=== PATIENT | male | born 1950 | race Two or more races ===

== ENCOUNTER 2018-06-06 21:45 | Inpatient (IN) | payer MEDICARE ==
[~2018-06-06] VITALS: Ht 188 cm; Wt 104.5 kg
[2018-06-06 22:44] LABS: BASOPHILS % (AUTO) 0.4 % (0.0-2.0); EOSINOPHILS % (AUTO) 7.8 % (1.0-6.0); HEMATOCRIT 30.2 % (41-53); HEMOGLOBIN 9.8 g/dL (13.5-17.5); LYMPHOCYTES # (AUTO) 1.3 K/uL (1.0-4.8); LYMPHOCYTES % (AUTO) 13.2 % (22.0-44.0); MEAN CORPUSCULAR HEMOGLOBIN 26.8 pg (26.0-34.0); MEAN CORPUSCULAR HGB CONC 32.3 G/dL (31.0-37.0); MEAN CORPUSCULAR VOLUME 83 fL (80-100); MONOCYTES # (AUTO) 0.7 K/uL (0.1-1.0); MONOCYTES % (AUTO) 6.8 % (2.0-9.0); NEUTROPHILS # (AUTO) 7.2 K/uL (1.8-7.7); NEUTROPHILS % (AUTO) 71.8 % (40.0-70.0); PLATELET COUNT (AUTO) 284 K/uL (150-450); RED BLOOD CELL COUNT(AUTO) 3.65 MIL/uL (4.50-5.90); RED CELL DISTRIBUTION WIDTH 15.7 % (11.5-14.5)
[2018-06-06 22:56] LABS: CALCIUM, TOTAL 8.2 mg/dL (8.8-10.5); CREATININE 1.53 mg/dL (0.60-1.30); POTASSIUM 3.7 mmol/L (3.5-5.1)
[2018-06-06 22:58] LABS: PROTHROMBIN TIME 10.7 SEC (9.4-11.6)
[2018-06-06 23:05] LABS: ALBUMIN 2.8 g/dL (3.4-5.0); BILIRUBIN,TOTAL 0.4 mg/dL (0.1-1.0); TOTAL PROTEIN, SERUM 6.5 g/dL (6.4-8.2)
[2018-06-06] MEDS ORDERED: PANTOPRAZOLE SODIUM 80 MG in SODIUM CHLORIDE 0.9% 100 ML IV SCH (23:45)
[2018-06-06] MEDS ORDERED: SODIUM CHLORIDE 0.9% 1,000 ML IV ONE ×2 (23:45)
[2018-06-07] MEDS ORDERED: ACETAMINOPHEN 325 MG TABLET PO PRN ×2 (00:30→00:45)
[2018-06-07] MEDS ORDERED: ONDANSETRON HCL 4 MG/2 ML VIAL IVP PRN ×2 (00:30→00:45)
[2018-06-07] MEDS ORDERED: 0.9% SODIUM CHLORIDE 10 ML SYRINGE IVP PRN (00:30)
[2018-06-07] MEDS ORDERED: ALBUTEROL SULFATE 2.5 MG/0.5 ML NEB SOLUTION NEB PRN (00:45)
[2018-06-07] MEDS ORDERED: BISACODYL 10 MG RECTAL RECTAL SUPPOSITORY PR PRN (00:45)
[2018-06-07] MEDS ORDERED: MAGNESIUM HYDROXIDE SUSPENSION 30 ML UDCUP PO PRN (00:45)
[2018-06-07] MEDS ORDERED: IPRATROPIUM BROMIDE 0.5 MG/2.5 ML NEB SOLUTION NEB PRN (00:45)
[2018-06-07] MEDS ORDERED: ZOLPIDEM TARTRATE 5 MG TABLET PO PRN (00:45)
[2018-06-07] MEDS: MORPHINE SULFATE 4 MG/ML SYRINGE IVP PRN ×2 (01:29→16:27)
[2018-06-07 01:45] VITALS: BP 145/89
[2018-06-07] MEDS ORDERED: PNEUMOCOCCAL VACCINE POLYVALENT 0.5 ML VIAL [PPSV23] IM ONE (03:15)
[2018-06-07] MEDS ORDERED: PEG 3350/NA SULF,BICARB,CL/KCL 4000 ML SOLUTION PO ONE (03:15)
[2018-06-07 04:17] VITALS: BP 159/95
[2018-06-07 08:17] VITALS: BP 147/80
[2018-06-07 08:36] LABS: BASOPHILS % (AUTO) 0.8 % (0.0-2.0); EOSINOPHILS % (AUTO) 10.1 % (1.0-6.0); HEMATOCRIT 26.1 % (41-53); HEMOGLOBIN 8.6 g/dL (13.5-17.5); LYMPHOCYTES % (AUTO) 16.6 % (22.0-44.0); MEAN CORPUSCULAR HEMOGLOBIN 27.1 pg (26.0-34.0); MEAN CORPUSCULAR HGB CONC 32.9 G/dL (31.0-37.0); MEAN CORPUSCULAR VOLUME 82 fL (80-100); MONOCYTES # (AUTO) 0.4 K/uL (0.1-1.0); MONOCYTES % (AUTO) 7.5 % (2.0-9.0); NEUTROPHILS # (AUTO) 3.8 K/uL (1.8-7.7); PLATELET COUNT (AUTO) 241 K/uL (150-450); RED BLOOD CELL COUNT(AUTO) 3.17 MIL/uL (4.50-5.90); RED CELL DISTRIBUTION WIDTH 15.9 % (11.5-14.5)
[2018-06-07 08:55] LABS: ALBUMIN 2.7 g/dL (3.4-5.0); BILIRUBIN,TOTAL 0.4 mg/dL (0.1-1.0); CALCIUM, TOTAL 8.2 mg/dL (8.8-10.5); CREATININE 1.28 mg/dL (0.60-1.30); POTASSIUM 3.7 mmol/L (3.5-5.1); TOTAL PROTEIN, SERUM 6.4 g/dL (6.4-8.2)
[2018-06-07] MEDS: PANTOPRAZOLE SODIUM 40 MG/VIAL IVP SCH (09:00)
[2018-06-07] MEDS ORDERED: SODIUM CHLORIDE 0.9% 1,000 ML IV ONE ×2 (10:47→11:00)
[2018-06-07 16:05] VITALS: BP 154/89
[2018-06-07 19:30] VITALS: BP 178/84
[2018-06-07] MEDS: AmLODIPine BESYLATE 10 MG TABLET PO SCH (20:27)
[2018-06-07 23:48] VITALS: BP 159/95
[2018-06-08] MEDS: OxyCODONE HCL/ACETAMINOPHEN 5-325 MG TABLET PO PRN ×3 (02:00→17:50)
[2018-06-08 04:10] VITALS: BP 123/59
[2018-06-08] MEDS ORDERED: PROPOFOL 1% 20 ML VIAL IVP ONE (05:34)
[2018-06-08 07:01] LABS: BASOPHILS % (AUTO) 0.9 % (0.0-2.0); EOSINOPHILS % (AUTO) 13.6 % (1.0-6.0); HEMATOCRIT 22.2 % (41-53); HEMOGLOBIN 7.6 g/dL (13.5-17.5); LYMPHOCYTES # (AUTO) 1.1 K/uL (1.0-4.8); LYMPHOCYTES % (AUTO) 21.6 % (22.0-44.0); MEAN CORPUSCULAR HGB CONC 34.3 G/dL (31.0-37.0); MEAN CORPUSCULAR VOLUME 82 fL (80-100); MONOCYTES # (AUTO) 0.5 K/uL (0.1-1.0); MONOCYTES % (AUTO) 10.1 % (2.0-9.0); NEUTROPHILS # (AUTO) 2.9 K/uL (1.8-7.7); NEUTROPHILS % (AUTO) 53.8 % (40.0-70.0); PLATELET COUNT (AUTO) 247 K/uL (150-450); RED BLOOD CELL COUNT(AUTO) 2.72 MIL/uL (4.50-5.90)
[2018-06-08 07:21] LABS: ALBUMIN 2.6 g/dL (3.4-5.0); BILIRUBIN,TOTAL 0.3 mg/dL (0.1-1.0); CALCIUM, TOTAL 8.4 mg/dL (8.8-10.5); CREATININE 1.33 mg/dL (0.60-1.30); MAGNESIUM 1.9 mg/dL (1.80-2.40); PHOSPHORUS 3.1 mg/dL (2.5-4.9); POTASSIUM 3.7 mmol/L (3.5-5.1); TOTAL PROTEIN, SERUM 6.2 g/dL (6.4-8.2)
[2018-06-08 07:36] VITALS: BP 157/87
[2018-06-08 07:50] LABS: HEMOGLOBIN A1C 6.1 % (4.5-6.2)
[2018-06-08] MEDS: PANTOPRAZOLE SODIUM 40 MG/VIAL IVP SCH ×2 (08:25→20:10)
[2018-06-08] MEDS: AmLODIPine BESYLATE 10 MG TABLET PO SCH (08:25)
[2018-06-08 11:12] VITALS: BP 142/81
[2018-06-08 15:32] VITALS: BP 141/86
[2018-06-08 19:56] VITALS: BP 157/84
[2018-06-08 23:30] VITALS: BP 139/70
[2018-06-09] MEDS: OxyCODONE HCL/ACETAMINOPHEN 5-325 MG TABLET PO PRN (02:52)
[2018-06-09 04:30] VITALS: BP 145/88
[2018-06-09 06:09] LABS: BASOPHILS % (AUTO) 0.7 % (0.0-2.0); EOSINOPHILS % (AUTO) 11.7 % (1.0-6.0); HEMATOCRIT 23.6 % (41-53); LYMPHOCYTES # (AUTO) 1.1 K/uL (1.0-4.8); LYMPHOCYTES % (AUTO) 20.4 % (22.0-44.0); MEAN CORPUSCULAR HEMOGLOBIN 27.5 pg (26.0-34.0); MEAN CORPUSCULAR HGB CONC 33.8 G/dL (31.0-37.0); MEAN CORPUSCULAR VOLUME 81 fL (80-100); MONOCYTES # (AUTO) 0.6 K/uL (0.1-1.0); MONOCYTES % (AUTO) 11.7 % (2.0-9.0); NEUTROPHILS % (AUTO) 55.5 % (40.0-70.0); PLATELET COUNT (AUTO) 259 K/uL (150-450); RED CELL DISTRIBUTION WIDTH 15.4 % (11.5-14.5)
[2018-06-09 06:31] LABS: ALBUMIN 2.8 g/dL (3.4-5.0); BILIRUBIN,TOTAL 0.3 mg/dL (0.1-1.0); CALCIUM, TOTAL 8.6 mg/dL (8.8-10.5); CREATININE 1.39 mg/dL (0.60-1.30); POTASSIUM 3.4 mmol/L (3.5-5.1); TOTAL PROTEIN, SERUM 6.7 g/dL (6.4-8.2)
[2018-06-09 07:11] VITALS: BP 148/88
[2018-06-09] MEDS ORDERED: IBUPROFEN 400 MG TABLET PO PRN (08:45)
[2018-06-09] MEDS ORDERED: PredniSONE 20 MG TABLET PO SCH (09:00)
[2018-06-09 09:29] LABS: MAGNESIUM 1.8 mg/dL (1.80-2.40); PHOSPHORUS 3.9 mg/dL (2.5-4.9)
[2018-06-09] MEDS: PANTOPRAZOLE SODIUM 40 MG/VIAL IVP SCH (09:37)
[2018-06-09] MEDS: AmLODIPine BESYLATE 10 MG TABLET PO SCH (09:37)
[2018-06-09 11:28] VITALS: BP 162/86
[2018-06-09] MEDS ORDERED: POTASSIUM CHL 10 MEQ/WATER 50 ML IV PRN (11:45)
[2018-06-09] MEDS ORDERED: COLCHICINE 0.6 MG TABLET PO SCH (11:45)
[2018-06-09] MEDS ORDERED: POTASSIUM CHLORIDE 20 MEQ ER TABLET PO PRN ×2 (11:45)
[2018-06-09 12:36] LABS: URIC ACID 6.4 mg/dL (2.6-7.2)
[2018-06-09] MEDS ORDERED: PRED20 PO (14:39)
[2018-06-09] MEDS ORDERED: AMLO-512 PO (14:40)
[2018-06-09] MEDS ORDERED: OMEP20 PO (14:40)
[2018-06-09] MEDS ORDERED: COLC0.6T67 PO (14:40)
[2018-06-09] MEDS ORDERED: ACET-2247 PO (14:41)
[2018-06-09 15:36] VITALS: BP 146/79
[2018-06-13] MEDS ORDERED: TRAM50TA4 PO (12:57)
[2018-06-13] MEDS ORDERED: PANT40TA25 PO (12:57)
== END 2018-06-09 17:05 | disposition home or self-care (01) | DRG 377 ==
LOC: EMS 21:47 → 5S 06-07 00:01 → EMS 06-07 00:46
PROVIDERS: ADMIT Internal Medicine; ATTEND Internal Medicine
PROC: 0DJD8ZZ Inspection of Lower Intestinal Tract, Via Natural or Artificial Opening Endoscopic (ICD-10-PCS; principal; 2018-06-07 12:00)
PROC: 3E02340 Introduction of Influenza Vaccine into Muscle, Percutaneous Approach (ICD-10-PCS; 2018-06-09)
PROC: 3E0234Z Introduction of Serum, Toxoid and Vaccine into Muscle, Percutaneous Approach (ICD-10-PCS; 2018-06-09)
PROC: 30233N1 Transfusion of Nonautologous Red Blood Cells into Peripheral Vein, Percutaneous Approach (ICD-10-PCS; 2018-06-09)
DX: K57.31 Diverticulosis of large intestine without perforation or abscess with bleeding (principal); N17.0 Acute kidney failure with tubular necrosis; K64.9 Unspecified hemorrhoids; R73.9 Hyperglycemia, unspecified; E83.51 Hypocalcemia; M10.9 Gout, unspecified; E78.00 Pure hypercholesterolemia, unspecified; I10 Essential (primary) hypertension; E78.5 Hyperlipidemia, unspecified; E66.9 Obesity, unspecified; F17.200 Nicotine dependence, unspecified, uncomplicated; D64.9 Anemia, unspecified; Z23 Encounter for immunization; Z68.29 Body mass index [BMI] 29.0-29.9, adult
CPT/HCPCS: 82271; 83036; 83735; 84100; 84132; 84550; 90686; 90732; 93005; 96365; C9113; G0378; J2270; J2704; J7030; J7050

== ENCOUNTER 2018-07-04 04:09 | Emergency (ER) | payer MEDICARE ==
[~2018-07-04] VITALS: Ht 188 cm; Wt 113.6 kg
[~2018-07-04 04:09] MED LIST: ACET-2247 PO; AMLO-512 PO; COLC0.6T67 PO; PANT40TA25 PO; PRED20 PO; TRAM50TA4 PO
[2018-07-04 04:12] VITALS: BP 130/60
[2018-07-04] MEDS ORDERED: INDOMETHACIN 25 MG CAPSULE PO ONE (06:15)
[2018-07-04] MEDS ORDERED: FAMOTIDINE 20 MG TABLET PO ONE (06:15)
[2018-07-04] MEDS ORDERED: OxyCODONE HCL/ACETAMINOPHEN 5-325 MG TABLET PO ONE (06:45)
== END 2018-07-04 07:04 | disposition home or self-care (01) ==
LOC: EMS 04:11
DX: M10.9 Gout, unspecified (principal); E78.00 Pure hypercholesterolemia, unspecified; I10 Essential (primary) hypertension; Z87.891 Personal history of nicotine dependence; Z79.899 Other long term (current) drug therapy

== ENCOUNTER 2018-07-14 09:48 | Emergency (ER) | payer MEDICARE ==
[~2018-07-14] VITALS: Ht 188 cm; Wt 100.0 kg
[2018-07-14] MEDS ORDERED: COLCHICINE 0.6 MG TABLET PO ONE (10:45)
[2018-07-14] MEDS ORDERED: HYDROCODONE/ACETAMINOPHEN 5-325 MG TABLET PO ONE (10:45)
[2018-07-14 12:27] VITALS: BP 152/80
== END 2018-07-14 12:32 | disposition home or self-care (01) ==
LOC: EMS 09:49
DX: M10.9 Gout, unspecified (principal); E78.00 Pure hypercholesterolemia, unspecified; I10 Essential (primary) hypertension; Z87.891 Personal history of nicotine dependence; Z79.899 Other long term (current) drug therapy

== ENCOUNTER 2018-07-21 10:40 | Emergency (ER) | payer MEDICARE ==
[~2018-07-21] VITALS: Ht 188 cm; Wt 111.4 kg
[2018-07-21] MEDS ORDERED: KETOROLAC TROMETHAMINE 30 MG/ML VIAL IM ONE (12:15)
[2018-07-21] MEDS ORDERED: COLCHICINE 0.6 MG TABLET PO ONE ×2 (12:15→15:00)
[2018-07-21] MEDS ORDERED: HYDROCODONE/ACETAMINOPHEN 5-325 MG TABLET PO ONE (12:15)
[2018-07-21 12:46] LABS: BASOPHILS % (AUTO) 0.2 % (0.0-2.0); EOSINOPHILS % (AUTO) 1.1 % (1.0-6.0); HEMOGLOBIN 8.3 g/dL (13.5-17.5); LYMPHOCYTES # (AUTO) 0.4 K/uL (1.0-4.8); LYMPHOCYTES % (AUTO) 3.8 % (22.0-44.0); MEAN CORPUSCULAR HEMOGLOBIN 22.6 pg (26.0-34.0); MEAN CORPUSCULAR HGB CONC 30.7 G/dL (31.0-37.0); MEAN CORPUSCULAR VOLUME 74 fL (80-100); MONOCYTES # (AUTO) 1.2 K/uL (0.1-1.0); MONOCYTES % (AUTO) 10.9 % (2.0-9.0); NEUTROPHILS # (AUTO) 9.2 K/uL (1.8-7.7); RED BLOOD CELL COUNT(AUTO) 3.65 MIL/uL (4.50-5.90); RED CELL DISTRIBUTION WIDTH 20.6 % (11.5-14.5)
[2018-07-21 12:54] LABS: ANION GAP 11 mmol/L (8-16); CALCIUM, TOTAL 8.7 mg/dL (8.8-10.5); CARBON DIOXIDE 29 mmol/L (22-29); CHLORIDE 98 mmol/L (98-107); CREATININE 1.08 mg/dL (0.60-1.30); GLOMERULAR FILTR. RATE CALC > 60 mL/min (>60); GLUCOSE,RANDOM 134 mg/dL (70-110); POTASSIUM 3.4 mmol/L (3.5-5.1); SODIUM SERUM 138 mmol/L (136-145); UREA NITROGEN, BLOOD 16 mg/dL (7-18)
[2018-07-21 12:55] LABS: C-REACTIVE PROTEIN QUANT 12.28 mg/dL (0.00-0.30)
[2018-07-21 13:06] LABS: PLATELET COUNT (AUTO) 839 K/uL (150-450)
[2018-07-21 13:32] LABS: PLATELET MORPHOLOGY COMMENT GIANT PLTS PRESENT
[2018-07-21 14:55] LABS: URIC ACID 6.8 mg/dL (2.6-7.2)
[2018-07-21 15:50] VITALS: BP 135/75
== END 2018-07-21 16:14 | disposition home or self-care (01) ==
LOC: EMS 10:41
DX: M10.9 Gout, unspecified (principal); E78.00 Pure hypercholesterolemia, unspecified; I10 Essential (primary) hypertension; Z87.891 Personal history of nicotine dependence; Z79.899 Other long term (current) drug therapy
CPT/HCPCS: 29515; 36415; 73610; 73630; 80048; 84550; 85025; 86140; 96372; 99284; J1885

== ENCOUNTER 2018-08-17 19:46 | Emergency (ER) | payer MEDICARE ==
[~2018-08-17] VITALS: Ht 182.9 cm; Wt 111.4 kg
[~2018-08-17 19:46] MED LIST changes: -ACET-2247 PO; -AMLO-512 PO; -COLC0.6T67 PO; -PANT40TA25 PO; -PRED20 PO
[2018-08-17] MEDS ORDERED: KETOROLAC TROMETHAMINE 30 MG/ML VIAL IM ONE (21:00)
[2018-08-17] MEDS ORDERED: COLCHICINE 0.6 MG TABLET PO ONE ×2 (21:00→21:45)
[2018-08-17 22:07] VITALS: BP 136/82
== END 2018-08-17 22:33 | disposition home or self-care (01) ==
LOC: EMS 19:47
DX: M10.9 Gout, unspecified (principal); M25.571 Pain in right ankle and joints of right foot; M79.89 Other specified soft tissue disorders; I10 Essential (primary) hypertension; E78.00 Pure hypercholesterolemia, unspecified; Z87.891 Personal history of nicotine dependence
CPT/HCPCS: 96372; 99283; J1885

== ENCOUNTER 2018-08-26 10:18 | Emergency (ER) | payer MEDICARE ==
[~2018-08-26] VITALS: Ht 188 cm; Wt 112.3 kg
[2018-08-26] MEDS ORDERED: COLC0.6T67 PO (10:27)
[2018-08-26] MEDS ORDERED: IBUPROFEN 800 MG TABLET PO ONE (11:45)
[2018-08-26] MEDS ORDERED: COLCHICINE 0.6 MG TABLET PO ONE (11:45)
[2018-08-26 12:43] VITALS: BP 140/91
== END 2018-08-26 12:55 | disposition home or self-care (01) ==
LOC: EMS 10:18
DX: M10.9 Gout, unspecified (principal); I10 Essential (primary) hypertension; E78.00 Pure hypercholesterolemia, unspecified; Z87.891 Personal history of nicotine dependence

== ENCOUNTER 2018-09-03 14:24 | Emergency (ER) | payer MEDICARE ==
[~2018-09-03] VITALS: Ht 188 cm; Wt 109.1 kg
[~2018-09-03 14:24] MED LIST changes: +COLC0.6T67 PO
[2018-09-03] MEDS ORDERED: COLCHICINE 0.6 MG TABLET PO ONE (15:30)
[2018-09-03] MEDS ORDERED: KETOROLAC TROMETHAMINE 60 MG/2 ML VIAL IM ONE (15:30)
[2018-09-03 17:19] VITALS: BP 130/79
== END 2018-09-03 17:38 | disposition home or self-care (01) ==
LOC: EMS 14:26
DX: M79.604 Pain in right leg (principal); M10.9 Gout, unspecified; E78.00 Pure hypercholesterolemia, unspecified; I10 Essential (primary) hypertension; Z87.891 Personal history of nicotine dependence
CPT/HCPCS: 96372; 99283; J1885

== ENCOUNTER 2018-09-10 15:36 | Inpatient (IN) | payer MEDICARE ==
[~2018-09-10] VITALS: Ht 188 cm; Wt 97.1 kg
[2018-09-10] MEDS ORDERED: ASPIRIN 81 MG CHEWABLE TABLET PO ONE (16:45)
[2018-09-10 17:05] LABS: BASOPHILS % (AUTO) 0.6 % (0.0-2.0); EOSINOPHILS % (AUTO) 1.2 % (1.0-6.0); HEMATOCRIT 28.9 % (41-53); HEMOGLOBIN 8.6 g/dL (13.5-17.5); LYMPHOCYTES # (AUTO) 0.8 K/uL (1.0-4.8); LYMPHOCYTES % (AUTO) 8.3 % (22.0-44.0); MEAN CORPUSCULAR HEMOGLOBIN 20.2 pg (26.0-34.0); MEAN CORPUSCULAR HGB CONC 29.9 G/dL (31.0-37.0); MEAN CORPUSCULAR VOLUME 68 fL (80-100); MONOCYTES # (AUTO) 1.1 K/uL (0.1-1.0); MONOCYTES % (AUTO) 11.6 % (2.0-9.0); NEUTROPHILS # (AUTO) 7.7 K/uL (1.8-7.7); NEUTROPHILS % (AUTO) 78.3 % (40.0-70.0); PLATELET COUNT (AUTO) 544 K/uL (150-450); RED BLOOD CELL COUNT(AUTO) 4.27 MIL/uL (4.50-5.90); RED CELL DISTRIBUTION WIDTH 21.5 % (11.5-14.5)
[2018-09-10 17:19] LABS: CALCIUM, TOTAL 8.8 mg/dL (8.8-10.5); CREATININE 1.27 mg/dL (0.60-1.30); POTASSIUM 3.6 mmol/L (3.5-5.1)
[2018-09-10 17:20] LABS: D-DIMER 2.57 mg/L FEU (0.00-0.50); INR 1.1 (0.9-1.1); PROTHROMBIN TIME 11.1 SEC (9.4-11.6)
[2018-09-10 17:25] LABS: ALBUMIN 3.1 g/dL (3.4-5.0); BILIRUBIN,TOTAL 1.1 mg/dL (0.1-1.0); TOTAL PROTEIN, SERUM 8.3 g/dL (6.4-8.2)
[2018-09-10] MEDS ORDERED: IOVERSOL 320 MG/ML 100 ML VIAL ONE (17:56)
[2018-09-10] MEDS ORDERED: SODIUM CHLORIDE 0.9% 100 ML ONE (17:56)
[2018-09-10 18:00] LABS: PLATELET MORPHOLOGY COMMENT GIANT PLTS PRESENT
[2018-09-10] MEDS ORDERED: ONDANSETRON HCL 4 MG/2 ML VIAL IVP ONE (18:45)
[2018-09-10] MEDS ORDERED: MORPHINE SULFATE 4 MG/ML SYRINGE IVP ONE (18:45)
[2018-09-10] MEDS ORDERED: SODIUM CHLORIDE 0.9% 1,000 ML IV ONE (20:15)
[2018-09-10] MEDS ORDERED: MORPHINE SULFATE 4 MG/ML SYRINGE IVP PRN (21:30)
[2018-09-10] MEDS ORDERED: ACETAMINOPHEN 325 MG TABLET PO PRN (21:30)
[2018-09-10] MEDS ORDERED: ONDANSETRON HCL 4 MG/2 ML VIAL IVP PRN ×2 (21:30→22:30)
[2018-09-10] MEDS ORDERED: 0.9% SODIUM CHLORIDE 10 ML SYRINGE IVP PRN ×2 (21:30→22:30)
[2018-09-10] MEDS ORDERED: ACETAMINOPHEN 650 MG/20.3 ML SOLUTION UDCUP PO PRN (22:30)
[2018-09-10] MEDS ORDERED: ZOLPIDEM TARTRATE 5 MG TABLET PO PRN (22:30)
[2018-09-11 05:29] LABS: BASOPHILS % (AUTO) 0.4 % (0.0-2.0); EOSINOPHILS % (AUTO) 0.4 % (1.0-6.0); HEMATOCRIT 26.2 % (41-53); HEMOGLOBIN 7.9 g/dL (13.5-17.5); LYMPHOCYTES # (AUTO) 0.8 K/uL (1.0-4.8); LYMPHOCYTES % (AUTO) 7.3 % (22.0-44.0); MEAN CORPUSCULAR HEMOGLOBIN 20.3 pg (26.0-34.0); MEAN CORPUSCULAR HGB CONC 30.2 G/dL (31.0-37.0); MEAN CORPUSCULAR VOLUME 67 fL (80-100); MONOCYTES # (AUTO) 1.2 K/uL (0.1-1.0); MONOCYTES % (AUTO) 10.8 % (2.0-9.0); NEUTROPHILS # (AUTO) 8.6 K/uL (1.8-7.7); NEUTROPHILS % (AUTO) 81.1 % (40.0-70.0); PLATELET COUNT (AUTO) 471 K/uL (150-450); RED BLOOD CELL COUNT(AUTO) 3.89 MIL/uL (4.50-5.90); RED CELL DISTRIBUTION WIDTH 21.5 % (11.5-14.5)
[2018-09-11 05:41] LABS: ALANINE AMINOTRANSFERASE 18 U/L (12-78); ALBUMIN 2.7 g/dL (3.4-5.0); ALKALINE PHOSPHATASE 77 U/L (46-116); ANION GAP 9 mmol/L (8-16); ASPARTATE AMINOTRANSFERASE 10 U/L (15-37); BILIRUBIN,TOTAL 1.8 mg/dL (0.1-1.0); CALCIUM, TOTAL 8.6 mg/dL (8.8-10.5); CARBON DIOXIDE 27 mmol/L (22-29); CHLORIDE 100 mmol/L (98-107); CREATININE 1.16 mg/dL (0.60-1.30); GLOMERULAR FILTR. RATE CALC > 60 mL/min (>60); GLUCOSE,RANDOM 140 mg/dL (70-110); POTASSIUM 3.5 mmol/L (3.5-5.1); SODIUM SERUM 136 mmol/L (136-145); TOTAL PROTEIN, SERUM 7.7 g/dL (6.4-8.2); UREA NITROGEN, BLOOD 12 mg/dL (7-18)
[2018-09-11] MEDS ORDERED: ONDANSETRON HCL 4 MG/2 ML VIAL IVP ONE (06:45)
[2018-09-11] MEDS ORDERED: MORPHINE SULFATE 4 MG/ML SYRINGE IVP ONE (06:45)
[2018-09-11 07:14] LABS: PLATELET MORPHOLOGY COMMENT GIANT PLTS PRESENT
[2018-09-11] MEDS: PANTOPRAZOLE SODIUM 40 MG/VIAL IVP SCH (08:32)
[2018-09-11] MEDS: ENOXAPARIN SODIUM 30 MG/0.3 ML PF SYRINGE SQ SCH (08:32)
[2018-09-11] MEDS ORDERED: CloNIDine HCL 0.1 MG TABLET PO ONE (09:15)
[2018-09-11] MEDS ORDERED: IBUPROFEN 400 MG TABLET PO PRN ×2 (09:15→22:00)
[2018-09-11] MEDS ORDERED: AmLODIPine BESYLATE 5 MG TABLET PO ONE (09:15)
[2018-09-11] MEDS ORDERED: COLCHICINE 0.6 MG TABLET PO ONE (11:15)
[2018-09-11] MEDS: OxyCODONE HCL/ACETAMINOPHEN 5-325 MG TABLET PO PRN ×2 (11:33→20:14)
[2018-09-11 14:08] VITALS: BP 111/55
[2018-09-11] MEDS: PredniSONE 20 MG TABLET PO SCH (16:26)
[2018-09-11 17:03] VITALS: BP 121/86
[2018-09-11 19:28] VITALS: BP 131/78
[2018-09-11] MEDS ORDERED: ACETAMINOPHEN 325 MG TABLET PO PRN (21:51)
[2018-09-11 23:24] VITALS: BP 116/61
[2018-09-12] MEDS: OxyCODONE HCL/ACETAMINOPHEN 5-325 MG TABLET PO PRN ×2 (03:29→11:15)
[2018-09-12 04:12] VITALS: BP 125/68
[2018-09-12 05:35] LABS: BASOPHILS % (AUTO) 0.2 % (0.0-2.0); EOSINOPHILS % (AUTO) 0 % (1.0-6.0); HEMATOCRIT 26.8 % (41-53); LYMPHOCYTES # (AUTO) 0.3 K/uL (1.0-4.8); LYMPHOCYTES % (AUTO) 2.5 % (22.0-44.0); MEAN CORPUSCULAR HEMOGLOBIN 19.9 pg (26.0-34.0); MEAN CORPUSCULAR HGB CONC 29.8 G/dL (31.0-37.0); MEAN CORPUSCULAR VOLUME 67 fL (80-100); MONOCYTES # (AUTO) 0.5 K/uL (0.1-1.0); MONOCYTES % (AUTO) 3.8 % (2.0-9.0); NEUTROPHILS # (AUTO) 12.6 K/uL (1.8-7.7); PLATELET COUNT (AUTO) 487 K/uL (150-450); RED BLOOD CELL COUNT(AUTO) 4.01 MIL/uL (4.50-5.90); RED CELL DISTRIBUTION WIDTH 21.4 % (11.5-14.5)
[2018-09-12 05:38] LABS: NEUTROPHILS % (AUTO) 93.5 % (40.0-70.0)
[2018-09-12 07:06] LABS: PLATELET MORPHOLOGY COMMENT LARGE PLTS PRESENT
[2018-09-12 07:25] VITALS: BP 146/78
[2018-09-12] MEDS: PredniSONE 20 MG TABLET PO SCH (08:03)
[2018-09-12] MEDS: PANTOPRAZOLE SODIUM 40 MG/VIAL IVP SCH (08:03)
[2018-09-12] MEDS: ENOXAPARIN SODIUM 30 MG/0.3 ML PF SYRINGE SQ SCH (08:04)
[2018-09-12 09:14] LABS: ANION GAP 19 mmol/L (8-16); CARBON DIOXIDE 24 mmol/L (22-29); CHLORIDE 101 mmol/L (98-107); CREATININE 1.11 mg/dL (0.60-1.30); GLOMERULAR FILTR. RATE CALC > 60 mL/min (>60); GLUCOSE,RANDOM 153 mg/dL (70-110); SODIUM SERUM 144 mmol/L (136-145); THYROID STIMULATING HORMONE 0.73 uIU/mL (0.36-3.74); UREA NITROGEN, BLOOD 15 mg/dL (7-18)
[2018-09-12 11:13] VITALS: BP 135/78
[2018-09-12 15:37] VITALS: BP 138/74
[2018-09-12] MEDS: INDOMETHACIN 25 MG CAPSULE PO SCH ×2 (18:06→21:37)
[2018-09-12 20:23] VITALS: BP 144/89
[2018-09-12] MEDS ORDERED: INDOMETHACIN 25 MG CAPSULE PO SCH (21:00)
[2018-09-12 23:48] VITALS: BP 144/74
[2018-09-13 04:22] VITALS: BP 149/96
[2018-09-13 05:46] LABS: BASOPHILS % (AUTO) 0.1 % (0.0-2.0); EOSINOPHILS % (AUTO) 0.2 % (1.0-6.0); HEMATOCRIT 27.5 % (41-53); LYMPHOCYTES # (AUTO) 0.8 K/uL (1.0-4.8); LYMPHOCYTES % (AUTO) 5.8 % (22.0-44.0); MEAN CORPUSCULAR HEMOGLOBIN 19.7 pg (26.0-34.0); MEAN CORPUSCULAR HGB CONC 29.1 G/dL (31.0-37.0); MEAN CORPUSCULAR VOLUME 68 fL (80-100); MONOCYTES # (AUTO) 0.8 K/uL (0.1-1.0); NEUTROPHILS # (AUTO) 12.2 K/uL (1.8-7.7); PLATELET COUNT (AUTO) 559 K/uL (150-450); RED BLOOD CELL COUNT(AUTO) 4.05 MIL/uL (4.50-5.90); RED CELL DISTRIBUTION WIDTH 20.7 % (11.5-14.5)
[2018-09-13 06:00] LABS: ANION GAP 5 mmol/L (8-16); CALCIUM, TOTAL 9.1 mg/dL (8.8-10.5); CARBON DIOXIDE 31 mmol/L (22-29); CHLORIDE 103 mmol/L (98-107); CREATININE 1.11 mg/dL (0.60-1.30); GLOMERULAR FILTR. RATE CALC > 60 mL/min (>60); GLUCOSE,RANDOM 127 mg/dL (70-110); POTASSIUM 3.4 mmol/L (3.5-5.1); SODIUM SERUM 139 mmol/L (136-145); UREA NITROGEN, BLOOD 19 mg/dL (7-18)
[2018-09-13 06:12] LABS: NEUTROPHILS % (AUTO) 87.9 % (40.0-70.0)
[2018-09-13 06:44] LABS: PLATELET MORPHOLOGY COMMENT LARGE PLTS PRESENT
[2018-09-13 08:19] VITALS: BP 141/86
[2018-09-13] MEDS: INDOMETHACIN 25 MG CAPSULE PO SCH ×3 (08:24→17:42)
[2018-09-13] MEDS: PredniSONE 20 MG TABLET PO SCH (08:24)
[2018-09-13] MEDS: PANTOPRAZOLE SODIUM 40 MG/VIAL IVP SCH (08:25)
[2018-09-13] MEDS: ENOXAPARIN SODIUM 30 MG/0.3 ML PF SYRINGE SQ SCH (08:37)
[2018-09-13] MEDS ORDERED: SODIUM BICARBONATE 650 MG TABLET PEG ONE (09:30)
[2018-09-13] MEDS ORDERED: AMYLASE PEG ONE (09:30)
[2018-09-13] MEDS ORDERED: PROTEASE PEG ONE (09:30)
[2018-09-13] MEDS ORDERED: [UNRECOGNIZED DRUG - OTHER] PEG ONE (09:30)
[2018-09-13] MEDS ORDERED: LIPASE PEG ONE (09:30)
[2018-09-13] MEDS: OxyCODONE HCL/ACETAMINOPHEN 5-325 MG TABLET PO PRN (11:23)
[2018-09-13 11:28] VITALS: BP 150/93
[2018-09-13 15:28] VITALS: BP 141/87
[2018-09-13] MEDS ORDERED: PRED20 PO ×2 (15:39→15:40)
[2018-09-13] MEDS ORDERED: INDO25 PO (15:39)
[2018-09-13] MEDS ORDERED: PRED10 PO (15:41)
[2018-09-13] MEDS ORDERED: PRED5 PO (15:42)
[2018-09-13] MEDS ORDERED: ALLO100T PO (15:43)
[2018-09-13] MEDS ORDERED: AMLO-511 PO (15:43)
[2018-09-13] MEDS ORDERED: ALLOPURINOL 100 MG TABLET PO SCH (21:00)
== END 2018-09-13 18:25 | disposition home or self-care (01) | DRG 313 ==
LOC: EMS 15:37 → AHU 09-11 10:51 → 5S 09-11 13:57
PROVIDERS: ADMIT Internal Medicine; ATTEND Internal Medicine
DX: R07.89 Other chest pain (principal); E78.00 Pure hypercholesterolemia, unspecified; I10 Essential (primary) hypertension; M10.9 Gout, unspecified; D64.9 Anemia, unspecified; E78.5 Hyperlipidemia, unspecified; I49.3 Ventricular premature depolarization; I49.1 Atrial premature depolarization; Z79.899 Other long term (current) drug therapy; Z87.891 Personal history of nicotine dependence
CPT/HCPCS: 71275; 83735; 84443; 84550; 85379; 86850; 86900; 86901; 93005; 93306; 93970; 96374; 96375; 97116; 97161; C9113; G0378; J1650; J2270; J2405; J7050

== ENCOUNTER 2018-09-15 10:33 | Emergency (ER) | payer MEDICARE ==
[~2018-09-15] VITALS: Ht 188 cm; Wt 102.3 kg
[~2018-09-15 10:33] MED LIST changes: +ALLO100T PO; +AMLO-511 PO; -COLC0.6T67 PO; +INDO25 PO; +PRED10 PO; +PRED20 PO; +PRED5 PO; -TRAM50TA4 PO
[2018-09-15] MEDS ORDERED: HYDROCODONE/ACETAMINOPHEN 5-325 MG TABLET PO ONE (12:30)
[2018-09-15] MEDS ORDERED: NAPROXEN 250 MG TABLET PO ONE (12:30)
[2018-09-15 16:11] VITALS: BP 149/72
== END 2018-09-15 16:15 | disposition home or self-care (01) ==
LOC: EMS 10:34
DX: M10.9 Gout, unspecified (principal); I10 Essential (primary) hypertension; E78.00 Pure hypercholesterolemia, unspecified; F12.90 Cannabis use, unspecified, uncomplicated; Z87.891 Personal history of nicotine dependence

== ENCOUNTER 2018-09-16 12:03 | Emergency (ER) | payer MEDICARE ==
[~2018-09-16] VITALS: Ht 182.9 cm; Wt 100.0 kg
[2018-09-16] MEDS ORDERED: HYDROCODONE/ACETAMINOPHEN 5-325 MG TABLET PO ONE (13:30)
[2018-09-16] MEDS ORDERED: KETOROLAC TROMETHAMINE 30 MG/ML VIAL IM ONE (13:30)
[2018-09-16 16:35] VITALS: BP 124/78
== END 2018-09-16 16:51 | disposition home or self-care (01) ==
LOC: EMS 12:03
DX: M10.9 Gout, unspecified (principal); E83.51 Hypocalcemia; E78.00 Pure hypercholesterolemia, unspecified; I10 Essential (primary) hypertension; F12.90 Cannabis use, unspecified, uncomplicated; Z87.891 Personal history of nicotine dependence
CPT/HCPCS: 96372; 99283; J1885

== ENCOUNTER 2019-07-04 11:45 | Emergency (ER) | payer MEDICARE ==
[~2019-07-04] VITALS: Ht 188 cm; Wt 115.9 kg
[2019-07-04 11:49] VITALS: BP 140/62
[2019-07-04] MEDS ORDERED: ACET-66 PO (11:52)
== END 2019-07-04 13:20 | disposition left against medical advice (07) ==
LOC: EMS 11:50
DX: M54.5 Low back pain (principal); Z53.21 Procedure and treatment not carried out due to patient leaving prior to being seen by health care provider

== ENCOUNTER 2020-02-01 05:40 | Emergency (ER) | payer MEDICARE ==
[~2020-02-01] VITALS: Ht 188 cm; Wt 100.0 kg
[~2020-02-01 05:40] MED LIST changes: +ACET-66 PO; -ALLO100T PO; -AMLO-511 PO; -INDO25 PO; -PRED10 PO; -PRED20 PO; -PRED5 PO
[2020-02-01 05:42] VITALS: BP 144/96
== END 2020-02-01 06:39 | disposition left against medical advice (07) ==
LOC: EMS 05:40
DX: R06.02 Shortness of breath (principal); Z53.21 Procedure and treatment not carried out due to patient leaving prior to being seen by health care provider

== ENCOUNTER 2020-05-08 12:10 | Emergency (ER) | payer MEDICARE ==
[~2020-05-08] VITALS: Ht 188 cm; Wt 113.6 kg
[2020-05-08 12:14] VITALS: BP 152/86
== END 2020-05-08 15:32 | disposition left against medical advice (07) ==
LOC: EMS 12:26
DX: R10.9 Unspecified abdominal pain (principal); Z53.21 Procedure and treatment not carried out due to patient leaving prior to being seen by health care provider

== ENCOUNTER 2020-07-21 22:25 | Emergency (ER) | payer MEDICARE ==
[~2020-07-21] VITALS: Ht 188 cm; Wt 90.9 kg
[2020-07-21 23:19] LABS: BASOPHILS % (AUTO) 1.1 % (0.0-2.0); LYMPHOCYTES # (AUTO) 1.5 K/uL (1.0-4.8); MONOCYTES # (AUTO) 0.4 K/uL (0.1-1.0); NEUTROPHILS # (AUTO) 3.1 K/uL (1.8-7.7)
[2020-07-21 23:25] LABS: EOSINOPHILS % (AUTO) 12.6 % (1.0-6.0); LYMPHOCYTES % (AUTO) 25.1 % (22.0-44.0); MEAN CORPUSCULAR HGB CONC 29.1 G/dL (31.0-37.0); MEAN CORPUSCULAR VOLUME 62 fL (80-100); MONOCYTES % (AUTO) 7.4 % (2.0-9.0); NEUTROPHILS % (AUTO) 53.8 % (40.0-70.0); PLATELET COUNT (AUTO) 356 K/uL (150-450); RED BLOOD CELL COUNT(AUTO) 5.02 MIL/uL (4.50-5.90); RED CELL DISTRIBUTION WIDTH 20.8 % (11.5-14.5)
[2020-07-21 23:30] LABS: CALCIUM, TOTAL 8.8 mg/dL (8.8-10.5); CREATININE 1.49 mg/dL (0.60-1.30); POTASSIUM 3.6 mmol/L (3.5-5.1)
[2020-07-21 23:37] LABS: ALBUMIN 3.8 g/dL (3.4-5.0); BILIRUBIN,TOTAL 0.4 mg/dL (0.1-1.0); TOTAL PROTEIN, SERUM 7.8 g/dL (6.4-8.2)
[2020-07-21] MEDS ORDERED: CloNIDine HCL 0.2 MG TABLET PO ONE (23:45)
[2020-07-21 23:48] LABS: COVID AG,FIA SOURCE NASOPHARYNGEAL
[2020-07-22] MEDS ORDERED: SODIUM CHLORIDE 0.9% 2,000 ML IV ONE (01:00)
[2020-07-22 01:26] LABS: APPEARANCE,URINE CLEAR (CLEAR); BILIRUBIN,URINE NEGATIVE (NEGATIVE); GLUCOSE, URINE (UA) NEGATIVE (NEGATIVE); KETONES,URINE NEGATIVE (NEGATIVE); LEUKOCYTE ESTERASE ,URINE NEGATIVE (NEGATIVE); NITRATE,URINE NEGATIVE (NEGATIVE); OCCULT BLOOD,URINE NEGATIVE (NEGATIVE); PROTEIN,URINE NEGATIVE (NEGATIVE)
[2020-07-22 03:44] VITALS: BP 152/96
== END 2020-07-22 04:23 | disposition left against medical advice (07) ==
LOC: EMS 22:25
DX: N17.9 Acute kidney failure, unspecified (principal); I49.3 Ventricular premature depolarization; I49.1 Atrial premature depolarization; F15.10 Other stimulant abuse, uncomplicated; R77.8 Other specified abnormalities of plasma proteins; D50.9 Iron deficiency anemia, unspecified; E78.00 Pure hypercholesterolemia, unspecified; I10 Essential (primary) hypertension; F12.90 Cannabis use, unspecified, uncomplicated; Z20.822 Contact with and (suspected) exposure to COVID-19; Z87.891 Personal history of nicotine dependence
CPT/HCPCS: 36415; 71045; 80053; 81003; 84484; 85025; 87426; 93005; 96360; 96361; 99285; J7030

== ENCOUNTER 2020-08-28 00:43 | Emergency (ER) | payer MEDICARE ==
[~2020-08-28] VITALS: Ht 188 cm; Wt 100.0 kg
[2020-08-28 02:11] LABS: BASOPHILS % (AUTO) 1.6 % (0.0-2.0); HEMOGLOBIN 9.4 g/dL (13.5-17.5); LYMPHOCYTES # (AUTO) 1.4 K/uL (1.0-4.8); LYMPHOCYTES % (AUTO) 23.5 % (22.0-44.0); MEAN CORPUSCULAR HEMOGLOBIN 17.7 pg (26.0-34.0); MEAN CORPUSCULAR HGB CONC 28.6 G/dL (31.0-37.0); MEAN CORPUSCULAR VOLUME 62 fL (80-100); MONOCYTES # (AUTO) 0.5 K/uL (0.1-1.0); MONOCYTES % (AUTO) 8.9 % (2.0-9.0); NEUTROPHILS # (AUTO) 2.8 K/uL (1.8-7.7); NEUTROPHILS % (AUTO) 47.7 % (40.0-70.0); PLATELET COUNT (AUTO) 378 K/uL (150-450); RED BLOOD CELL COUNT(AUTO) 5.32 MIL/uL (4.50-5.90); RED CELL DISTRIBUTION WIDTH 21.1 % (11.5-14.5)
[2020-08-28 02:15] LABS: ANION GAP 13 mmol/L (8-16); CALCIUM, TOTAL 8.7 mg/dL (8.8-10.5); CARBON DIOXIDE 23 mmol/L (22-29); CHLORIDE 101 mmol/L (98-107); CREATININE 1.78 mg/dL (0.60-1.30); GLOMERULAR FILTR. RATE CALC 38 mL/min (>60); GLUCOSE,RANDOM 103 mg/dL (70-110); POTASSIUM 3.8 mmol/L (3.5-5.1); SODIUM SERUM 137 mmol/L (136-145); UREA NITROGEN, BLOOD 30 mg/dL (7-18)
[2020-08-28 02:32] LABS: EOSINOPHILS % (AUTO) 18.3 % (1.0-6.0)
[2020-08-28 02:37] LABS: B-TYPE NATRIURETIC PEPTIDE 905 pg/mL (0-100)
[2020-08-28 02:39] LABS: ALANINE AMINOTRANSFERASE 48 U/L (12-78); ALBUMIN 4.3 g/dL (3.4-5.0); ALKALINE PHOSPHATASE 83 U/L (46-116); BILIRUBIN,TOTAL 1.3 mg/dL (0.1-1.0); CREATINE KINASE, TOTAL ONLY 193 U/L (39-308); TOTAL PROTEIN, SERUM 7.5 g/dL (6.4-8.2)
[2020-08-28 02:40] LABS: INR 1.1 (0.9-1.1); PROTHROMBIN TIME 11.9 SEC (9.4-11.6)
[2020-08-28 03:10] LABS: ASPARTATE AMINOTRANSFERASE 41 U/L (15-37)
[2020-08-28 03:38] LABS: AMPHET/METH SCREEN,URINE POSITIVE (NEGATIVE); BARBITURATE SCREEN, URINE NEGATIVE (NEGATIVE); BENZODIAZEPINES SCREEN,URINE NEGATIVE (NEGATIVE); CANNABINOID SCREEN,URINE NEGATIVE (NEGATIVE); COCAINE SCREEN,URINE NEGATIVE (NEGATIVE); METHADONE SCREEN, URINE NEGATIVE (NEGATIVE); OPIATE SCREEN,URINE NEGATIVE (NEGATIVE)
[2020-08-28 03:39] LABS: APPEARANCE,URINE CLEAR (CLEAR); BILIRUBIN,URINE NEGATIVE (NEGATIVE); GLUCOSE, URINE (UA) NEGATIVE (NEGATIVE); KETONES,URINE NEGATIVE (NEGATIVE); LEUKOCYTE ESTERASE ,URINE SMALL (NEGATIVE); NITRATE,URINE NEGATIVE (NEGATIVE); OCCULT BLOOD,URINE NEGATIVE (NEGATIVE); PH,URINE 5.5 (5.0-8.0); PROTEIN,URINE TRACE (NEGATIVE)
[2020-08-28 03:40] LABS: PHENCYCLIDINE SCREEN,URINE NEGATIVE (NEGATIVE)
[2020-08-28 03:52] LABS: BACTERIA,URINE Rare /HPF (None Seen); RBC,URINE 0-2 /HPF (0-2); SQUAMOUS EPITHELIAL CELL,UR Few /LPF (None Seen)
[2020-08-28] MEDS ORDERED: LORazepam 2 MG/ML VIAL IVP ONE (04:00)
[2020-08-28] MEDS ORDERED: SODIUM CHLORIDE 0.9% 1,000 ML IV ONE (05:15)
[2020-08-28 06:18] VITALS: BP 162/95
== END 2020-08-28 06:41 | disposition home or self-care (01) ==
LOC: EMS 00:45
DX: N28.9 Disorder of kidney and ureter, unspecified (principal); R06.02 Shortness of breath; F41.9 Anxiety disorder, unspecified; F15.10 Other stimulant abuse, uncomplicated; E78.00 Pure hypercholesterolemia, unspecified; I10 Essential (primary) hypertension; F12.90 Cannabis use, unspecified, uncomplicated; Z87.891 Personal history of nicotine dependence
CPT/HCPCS: 36415; 71045; 80053; 80307; 81001; 82550; 83880; 84484; 85025; 85610; 85730; 93005; 96361; 96374; 99285; G0480; J2060

== ENCOUNTER 2020-10-17 21:01 | Inpatient (IN) | payer MEDICARE ==
[~2020-10-17] VITALS: Ht 188 cm; Wt 102.5 kg
[~2020-10-17 21:01] MED LIST changes: -ACET-66 PO; +ALLO100T2 PO; +CARV3 PO; +FURO20 PO; +LISI-893 PO; +POTA8TAB71 PO
[2020-10-17] MEDS ORDERED: ASPIRIN 81 MG CHEWABLE TABLET PO ONE (22:15)
[2020-10-17 22:26] LABS: EOSINOPHILS % (AUTO) 6.2 % (1.0-6.0); HEMATOCRIT 30.9 % (41-53); HEMOGLOBIN 8.8 g/dL (13.5-17.5); LYMPHOCYTES % (AUTO) 19.6 % (22.0-44.0); MEAN CORPUSCULAR HGB CONC 28.6 G/dL (31.0-37.0); MEAN CORPUSCULAR VOLUME 63 fL (80-100); MONOCYTES % (AUTO) 8.4 % (2.0-9.0); NEUTROPHILS % (AUTO) 65.1 % (40.0-70.0); PLATELET COUNT (AUTO) 340 K/uL (150-450); RED BLOOD CELL COUNT(AUTO) 4.91 MIL/uL (4.50-5.90); RED CELL DISTRIBUTION WIDTH 22.2 % (11.5-14.5)
[2020-10-17 22:27] LABS: BASOPHILS % (AUTO) 0.7 % (0.0-2.0); LYMPHOCYTES # (AUTO) 1.3 K/uL (1.0-4.8); MONOCYTES # (AUTO) 0.5 K/uL (0.1-1.0); NEUTROPHILS # (AUTO) 4.2 K/uL (1.8-7.7)
[2020-10-17 22:32] LABS: COVID AG,FIA SOURCE NASOPHARYNGEAL
[2020-10-17 22:35] LABS: CALCIUM, TOTAL 8.6 mg/dL (8.8-10.5); CREATININE 1.97 mg/dL (0.60-1.30); POTASSIUM 4.1 mmol/L (3.5-5.1)
[2020-10-17 22:41] LABS: ALBUMIN 3.9 g/dL (3.4-5.0); BILIRUBIN,TOTAL 0.5 mg/dL (0.1-1.0); TOTAL PROTEIN, SERUM 7.3 g/dL (6.4-8.2)
[2020-10-17 22:49] LABS: INR 1.1 (0.9-1.1); PROTHROMBIN TIME 11.4 SEC (9.4-11.6)
[2020-10-17 22:57] LABS: PLATELET MORPHOLOGY COMMENT LARGE PLTS PRESENT
[2020-10-17 22:58] LABS: FREE T4 (FREE THYROXINE) 1.2 ng/dL (0.76-1.46); THYROID STIMULATING HORMONE 2.18 uIU/mL (0.36-3.74)
[2020-10-17] MEDS ORDERED: NITROGLYCERIN 2% (1 GM=INCH) PACKET TP ONE (23:45)
[2020-10-17] MEDS ORDERED: FUROSEMIDE 40 MG/4 ML VIAL IVP ONE (23:45)
[2020-10-17] MEDS ORDERED: DILTIAZEM HCL 5 MG/ML 5 ML VIAL IVP ONE (23:45)
[2020-10-18] MEDS ORDERED: CARVEDILOL 3.125 MG TABLET PO ONE (00:30)
[2020-10-18 01:33] LABS: AMPHET/METH SCREEN,URINE NEGATIVE (NEGATIVE); BARBITURATE SCREEN, URINE NEGATIVE (NEGATIVE); BENZODIAZEPINES SCREEN,URINE NEGATIVE (NEGATIVE); CANNABINOID SCREEN,URINE NEGATIVE (NEGATIVE); COCAINE SCREEN,URINE NEGATIVE (NEGATIVE); METHADONE SCREEN, URINE NEGATIVE (NEGATIVE); OPIATE SCREEN,URINE NEGATIVE (NEGATIVE); PHENCYCLIDINE SCREEN,URINE NEGATIVE (NEGATIVE)
[2020-10-18] MEDS ORDERED: DILTIAZEM HCL 125 MG in DEXTROSE 5%-WATER 100 ML IV SCH (04:15)
[2020-10-18 05:30] VITALS: BP 119/79
[2020-10-18] MEDS ORDERED: DILTIAZEM HCL 125 MG in DEXTROSE 5%-WATER 100 ML IV PRN (06:00)
[2020-10-18 08:09] VITALS: BP 112/83
[2020-10-18] MEDS: FUROSEMIDE 20 MG TABLET PO SCH (08:57)
[2020-10-18] MEDS: CARVEDILOL 6.25 MG TABLET PO SCH ×2 (08:57→20:36)
[2020-10-18] MEDS: ASPIRIN 81 MG CHEWABLE TABLET PO SCH (08:57)
[2020-10-18] MEDS: APIXABAN 5 MG TABLET PO SCH ×2 (08:57→20:36)
[2020-10-18] MEDS: ALLOPURINOL 100 MG TABLET PO SCH (08:57)
[2020-10-18] MEDS: POTASSIUM CHLORIDE 8 MEQ ER TABLET PO SCH (08:57)
[2020-10-18] MEDS ORDERED: APIXABAN 5 MG TABLET PO SCH (09:00)
[2020-10-18] MEDS ORDERED: LISINOPRIL 10 MG TABLET PO SCH (09:00)
[2020-10-18] MEDS ORDERED: CARVEDILOL 3.125 MG TABLET PO SCH (09:00)
[2020-10-18] MEDS: ATORVASTATIN CALCIUM 40 MG TABLET PO SCH (10:29)
[2020-10-18 11:22] VITALS: BP 108/62
[2020-10-18] MEDS: GuaiFENesin/CODEINE [SUGAR FREE] 200-20MG/10 ML SYRUP UDCUP PO PRN ×2 (13:42→20:36)
[2020-10-18 13:43] LABS: CALCIUM, TOTAL 8.4 mg/dL (8.8-10.5); CREATININE 1.89 mg/dL (0.60-1.30); POTASSIUM 4.3 mmol/L (3.5-5.1)
[2020-10-18 16:13] VITALS: BP 123/74
[2020-10-18 19:37] VITALS: BP 119/82
[2020-10-18 23:52] VITALS: BP 128/68
[2020-10-19 04:27] VITALS: BP 116/86
[2020-10-19 06:56] LABS: % IRON SATURATION 3.7 % (30-44)
[2020-10-19 06:57] LABS: BASOPHILS % (AUTO) 0.7 % (0.0-2.0); EOSINOPHILS % (AUTO) 12.1 % (1.0-6.0); HEMATOCRIT 30.3 % (41-53); HEMOGLOBIN 8.8 g/dL (13.5-17.5); LYMPHOCYTES % (AUTO) 19.4 % (22.0-44.0); MEAN CORPUSCULAR HEMOGLOBIN 18.4 pg (26.0-34.0); MEAN CORPUSCULAR HGB CONC 29.3 G/dL (31.0-37.0); MEAN CORPUSCULAR VOLUME 63 fL (80-100); MONOCYTES # (AUTO) 0.6 K/uL (0.1-1.0); MONOCYTES % (AUTO) 10.8 % (2.0-9.0); NEUTROPHILS # (AUTO) 3.1 K/uL (1.8-7.7); PLATELET COUNT (AUTO) 316 K/uL (150-450); RED CELL DISTRIBUTION WIDTH 21.8 % (11.5-14.5)
[2020-10-19 07:27] LABS: ALBUMIN 3.4 g/dL (3.4-5.0); BILIRUBIN,TOTAL 0.7 mg/dL (0.1-1.0); CALCIUM, TOTAL 8.4 mg/dL (8.8-10.5); CHOL/HDL RATIO 4.4 (4.2-7.3); CREATININE 1.67 mg/dL (0.60-1.30); POTASSIUM 4.4 mmol/L (3.5-5.1); TOTAL PROTEIN, SERUM 7.3 g/dL (6.4-8.2)
[2020-10-19 07:37] VITALS: BP 145/88
[2020-10-19] MEDS: APIXABAN 5 MG TABLET PO SCH ×2 (08:11→21:12)
[2020-10-19] MEDS: CARVEDILOL 6.25 MG TABLET PO SCH (08:11)
[2020-10-19] MEDS: ALLOPURINOL 100 MG TABLET PO SCH (08:12)
[2020-10-19] MEDS: FUROSEMIDE 20 MG TABLET PO SCH (08:12)
[2020-10-19] MEDS: POTASSIUM CHLORIDE 8 MEQ ER TABLET PO SCH (08:12)
[2020-10-19] MEDS: ASPIRIN 81 MG CHEWABLE TABLET PO SCH (08:12)
[2020-10-19] MEDS: ATORVASTATIN CALCIUM 40 MG TABLET PO SCH (08:12)
[2020-10-19] MEDS ORDERED: CARVEDILOL 6.25 MG TABLET PO ONE (08:15)
[2020-10-19 11:46] VITALS: BP 122/70
[2020-10-19] MEDS ORDERED: DOCUSATE SODIUM 100 MG CAPSULE PO PRN (14:15)
[2020-10-19] MEDS ORDERED: BARIUM SULFATE 0.1% SUSPENSION 450 ML BOTTLE ONE ×2 (14:16)
[2020-10-19 15:45] VITALS: BP 127/67
[2020-10-19] MEDS: FERROUS SULFATE 325 MG EC TABLET PO SCH (18:38)
[2020-10-19] MEDS: GuaiFENesin/CODEINE [SUGAR FREE] 200-20MG/10 ML SYRUP UDCUP PO PRN (18:38)
[2020-10-19] MEDS ORDERED: METOPROLOL SUCCINATE 50 MG ER TABLET PO ONE (19:00)
[2020-10-19] MEDS ORDERED: DIGOXIN 250 MCG/ML 2 ML AMP IVP ONE (19:00)
[2020-10-19 20:10] VITALS: BP 127/73
[2020-10-19] MEDS ORDERED: CARVEDILOL 12.5 MG TABLET PO SCH (21:00)
[2020-10-20 00:24] VITALS: BP 107/73
[2020-10-20 04:43] VITALS: BP 134/76
[2020-10-20 05:48] LABS: BASOPHILS % (AUTO) 0.7 % (0.0-2.0); EOSINOPHILS % (AUTO) 11.1 % (1.0-6.0); HEMOGLOBIN 9.2 g/dL (13.5-17.5); LYMPHOCYTES % (AUTO) 18.1 % (22.0-44.0); MEAN CORPUSCULAR HEMOGLOBIN 18.2 pg (26.0-34.0); MEAN CORPUSCULAR HGB CONC 28.8 G/dL (31.0-37.0); MEAN CORPUSCULAR VOLUME 63 fL (80-100); MONOCYTES # (AUTO) 0.7 K/uL (0.1-1.0); NEUTROPHILS # (AUTO) 3.3 K/uL (1.8-7.7); NEUTROPHILS % (AUTO) 58.1 % (40.0-70.0); PLATELET COUNT (AUTO) 345 K/uL (150-450); RED BLOOD CELL COUNT(AUTO) 5.07 MIL/uL (4.50-5.90); RED CELL DISTRIBUTION WIDTH 21.7 % (11.5-14.5)
[2020-10-20 07:15] LABS: ALBUMIN 3.5 g/dL (3.4-5.0); BILIRUBIN,TOTAL 0.6 mg/dL (0.1-1.0); CALCIUM, TOTAL 8.6 mg/dL (8.8-10.5); CREATININE 1.6 mg/dL (0.60-1.30); POTASSIUM 4.3 mmol/L (3.5-5.1); TOTAL PROTEIN, SERUM 7.5 g/dL (6.4-8.2)
[2020-10-20 07:59] VITALS: BP 135/80
[2020-10-20] MEDS: ALLOPURINOL 100 MG TABLET PO SCH (08:12)
[2020-10-20] MEDS: FUROSEMIDE 20 MG TABLET PO SCH (08:12)
[2020-10-20] MEDS: ATORVASTATIN CALCIUM 40 MG TABLET PO SCH (08:12)
[2020-10-20] MEDS: ASPIRIN 81 MG CHEWABLE TABLET PO SCH (08:12)
[2020-10-20] MEDS: FERROUS SULFATE 325 MG EC TABLET PO SCH ×2 (08:12→12:00)
[2020-10-20] MEDS: APIXABAN 5 MG TABLET PO SCH (08:12)
[2020-10-20] MEDS: POTASSIUM CHLORIDE 8 MEQ ER TABLET PO SCH (08:13)
[2020-10-20] MEDS ORDERED: CARVEDILOL 12.5 MG TABLET PO SCH (09:00)
[2020-10-20 12:28] VITALS: BP 112/60
[2020-10-20] MEDS ORDERED: APIX5TAB PO (15:30)
[2020-10-20] MEDS ORDERED: METO25XL PO (15:30)
[2020-10-20] MEDS ORDERED: ATOR40TA28 PO (15:31)
[2020-10-20] MEDS ORDERED: FERR-89 PO (15:33)
[2020-10-20] MEDS ORDERED: DOCU-275 PO (15:34)
== END 2020-10-20 16:15 | disposition home or self-care (01) | DRG 308 ==
LOC: EMS 21:03 → 5S 10-18 07:08
PROVIDERS: ADMIT Internal Medicine; ATTEND Internal Medicine
DX: I48.91 Unspecified atrial fibrillation (principal); I50.21 Acute systolic (congestive) heart failure; I13.0 Hypertensive heart and chronic kidney disease with heart failure and stage 1 through stage 4 chronic kidney disease, or unspecified chronic kidney disease; I24.8 Other forms of acute ischemic heart disease; N17.9 Acute kidney failure, unspecified; Z20.822 Contact with and (suspected) exposure to COVID-19; F12.90 Cannabis use, unspecified, uncomplicated; E78.5 Hyperlipidemia, unspecified; I25.10 Atherosclerotic heart disease of native coronary artery without angina pectoris; N18.9 Chronic kidney disease, unspecified; D64.9 Anemia, unspecified; F15.10 Other stimulant abuse, uncomplicated; M10.9 Gout, unspecified; Z82.49 Family history of ischemic heart disease and other diseases of the circulatory system; Z87.891 Personal history of nicotine dependence; Z91.19 Patient's noncompliance with other medical treatment and regimen
CPT/HCPCS: 71045; 74176; 80048; 80053; 80061; 82270; 82271; 82550; 82728; 83540; 83550; 83735; 83880; 84439; 84443; 84484; 85025; 85610; 85730; 93005; 93306; 99291; A9575; G0378; J1160; J1940; J3490; J7060; 36415-L1; 36415-TC

== ENCOUNTER 2021-01-01 01:15 | Inpatient (IN) | payer MEDICARE ==
[~2021-01-01] VITALS: Ht 188 cm; Wt 100.7 kg
[~2021-01-01 01:15] MED LIST changes: +APIX2.5T PO; +ATOR40TA28 PO; -CARV3 PO; +DOCU-270 PO; +FERR-89 PO; -LISI-893 PO; +METO-391 PO; -POTA8TAB71 PO
[2021-01-01] MEDS ORDERED: DILTIAZEM HCL 5 MG/ML 5 ML VIAL IVP ONE (01:45)
[2021-01-01] MEDS ORDERED: DILTIAZEM HCL 125 MG in DEXTROSE 5%-WATER 100 ML IV PRN (01:45)
[2021-01-01] MEDS ORDERED: DILTIAZEM HCL 125 MG in DEXTROSE 5%-WATER 100 ML IV SCH (01:45)
[2021-01-01 01:58] LABS: BASOPHILS % (AUTO) 0.7 % (0.0-2.0); EOSINOPHILS % (AUTO) 8.5 % (1.0-6.0); HEMATOCRIT 43.5 % (41-53); HEMOGLOBIN 13.7 g/dL (13.5-17.5); LYMPHOCYTES # (AUTO) 1.1 K/uL (1.0-4.8); LYMPHOCYTES % (AUTO) 18.4 % (22.0-44.0); MEAN CORPUSCULAR HGB CONC 31.6 G/dL (31.0-37.0); MEAN CORPUSCULAR VOLUME 82 fL (80-100); MONOCYTES # (AUTO) 0.6 K/uL (0.1-1.0); MONOCYTES % (AUTO) 9.5 % (2.0-9.0); NEUTROPHILS # (AUTO) 3.9 K/uL (1.8-7.7); NEUTROPHILS % (AUTO) 62.9 % (40.0-70.0); PLATELET COUNT (AUTO) 210 K/uL (150-450); RED BLOOD CELL COUNT(AUTO) 5.28 MIL/uL (4.50-5.90); RED CELL DISTRIBUTION WIDTH 26.6 % (11.5-14.5)
[2021-01-01 01:59] LABS: ANION GAP 12 mmol/L (8-16); CALCIUM, TOTAL 8.8 mg/dL (8.8-10.5); CARBON DIOXIDE 24 mmol/L (22-29); CHLORIDE 109 mmol/L (98-107); CREATININE 1.37 mg/dL (0.60-1.30); GLOMERULAR FILTR. RATE CALC 51 mL/min (>60); GLUCOSE,RANDOM 119 mg/dL (70-110); POTASSIUM 3.7 mmol/L (3.5-5.1); SODIUM SERUM 145 mmol/L (136-145); UREA NITROGEN, BLOOD 20 mg/dL (7-18)
[2021-01-01 02:17] LABS: B-TYPE NATRIURETIC PEPTIDE 805 pg/mL (0-100)
[2021-01-01 02:18] LABS: ALANINE AMINOTRANSFERASE 37 U/L (12-78); ALBUMIN 3.7 g/dL (3.4-5.0); ALKALINE PHOSPHATASE 78 U/L (46-116); ASPARTATE AMINOTRANSFERASE 29 U/L (15-37); BILIRUBIN,TOTAL 0.5 mg/dL (0.1-1.0); CREATINE KINASE, TOTAL ONLY 159 U/L (39-308); TOTAL PROTEIN, SERUM 7.3 g/dL (6.4-8.2)
[2021-01-01 02:21] LABS: COVID AG,FIA SOURCE NASOPHARYNGEAL
[2021-01-01 02:26] LABS: APPEARANCE,URINE CLEAR (CLEAR); BILIRUBIN,URINE NEGATIVE (NEGATIVE); GLUCOSE, URINE (UA) NEGATIVE (NEGATIVE); KETONES,URINE NEGATIVE (NEGATIVE); LEUKOCYTE ESTERASE ,URINE NEGATIVE (NEGATIVE); NITRATE,URINE NEGATIVE (NEGATIVE); OCCULT BLOOD,URINE TRACE (NEGATIVE); PROTEIN,URINE TRACE (NEGATIVE)
[2021-01-01 02:28] LABS: BACTERIA,URINE Rare /HPF (None Seen); RBC,URINE 0-2 /HPF (0-2); WBC,URINE 0-2 /HPF (0-5)
[2021-01-01 02:29] LABS: SQUAMOUS EPITHELIAL CELL,UR Few /LPF (None Seen)
[2021-01-01] MEDS ORDERED: FUROSEMIDE 20 MG TABLET PO ONE (02:30)
[2021-01-01] MEDS ORDERED: METOPROLOL TARTRATE 50 MG TABLET PO ONE (02:30)
[2021-01-01] MEDS ORDERED: ONDANSETRON HCL 4 MG/2 ML VIAL IVP PRN ×2 (02:30→03:30)
[2021-01-01] MEDS ORDERED: ACETAMINOPHEN 325 MG TABLET PO PRN ×2 (02:30→03:30)
[2021-01-01] MEDS ORDERED: APIXABAN 2.5 MG TABLET PO ONE (02:30)
[2021-01-01 02:31] LABS: AMPHET/METH SCREEN,URINE NEGATIVE (NEGATIVE); BARBITURATE SCREEN, URINE NEGATIVE (NEGATIVE); BENZODIAZEPINES SCREEN,URINE NEGATIVE (NEGATIVE); CANNABINOID SCREEN,URINE NEGATIVE (NEGATIVE); COCAINE SCREEN,URINE NEGATIVE (NEGATIVE); METHADONE SCREEN, URINE NEGATIVE (NEGATIVE); OPIATE SCREEN,URINE NEGATIVE (NEGATIVE); PHENCYCLIDINE SCREEN,URINE NEGATIVE (NEGATIVE)
[2021-01-01 04:30] VITALS: BP 137/100
[2021-01-01] MEDS: FUROSEMIDE 20 MG/2 ML VIAL IVP SCH ×3 (07:21→20:58)
[2021-01-01] MEDS ORDERED: HEPARIN SODIUM,PORCINE 5,000 UNITS/ML VIAL SQ SCH (08:00)
[2021-01-01] MEDS: ASPIRIN 81 MG CHEWABLE TABLET PO SCH (08:21)
[2021-01-01] MEDS: ATORVASTATIN CALCIUM 40 MG TABLET PO SCH (08:21)
[2021-01-01] MEDS: FERROUS SULFATE 325 MG EC TABLET PO SCH ×4 (08:22→20:58)
[2021-01-01] MEDS: ALLOPURINOL 100 MG TABLET PO SCH (08:22)
[2021-01-01 08:23] VITALS: BP 155/103
[2021-01-01] MEDS: METOPROLOL SUCCINATE 50 MG ER TABLET PO SCH ×3 (08:23→21:34)
[2021-01-01] MEDS: DOCUSATE SODIUM 100 MG CAPSULE PO PRN (08:26)
[2021-01-01] MEDS ORDERED: FUROSEMIDE 20 MG TABLET PO SCH (09:00)
[2021-01-01] MEDS ORDERED: ALLOPURINOL 100 MG TABLET PO SCH (09:00)
[2021-01-01] MEDS ORDERED: METOPROLOL SUCCINATE 50 MG ER TABLET PO SCH (09:00)
[2021-01-01 12:21] VITALS: BP 146/99
[2021-01-01 15:52] VITALS: BP 143/98
[2021-01-01 19:53] VITALS: BP 149/87
[2021-01-01 23:49] VITALS: BP 145/88
[2021-01-02 05:10] VITALS: BP 133/80
[2021-01-02] MEDS: FUROSEMIDE 20 MG/2 ML VIAL IVP SCH ×2 (08:06→20:24)
[2021-01-02] MEDS: FERROUS SULFATE 325 MG EC TABLET PO SCH ×4 (08:06→20:22)
[2021-01-02] MEDS: ALLOPURINOL 100 MG TABLET PO SCH (08:07)
[2021-01-02] MEDS: ATORVASTATIN CALCIUM 40 MG TABLET PO SCH (08:07)
[2021-01-02] MEDS: ASPIRIN 81 MG CHEWABLE TABLET PO SCH (08:07)
[2021-01-02] MEDS: METOPROLOL SUCCINATE 50 MG ER TABLET PO SCH ×2 (08:07→20:22)
[2021-01-02 08:32] VITALS: BP 153/88
[2021-01-02 12:06] VITALS: BP 118/87
[2021-01-02 15:56] VITALS: BP 152/97
[2021-01-02 20:10] VITALS: BP 162/85
[2021-01-02] MEDS: DOCUSATE SODIUM 100 MG CAPSULE PO PRN (20:22)
[2021-01-03 00:04] VITALS: BP 132/88
[2021-01-03 04:55] VITALS: BP 142/98
[2021-01-03 08:01] VITALS: BP 153/94
[2021-01-03] MEDS: FUROSEMIDE 20 MG/2 ML VIAL IVP SCH (08:30)
[2021-01-03] MEDS: FERROUS SULFATE 325 MG EC TABLET PO SCH ×2 (08:30→11:27)
[2021-01-03] MEDS: ASPIRIN 81 MG CHEWABLE TABLET PO SCH (08:31)
[2021-01-03] MEDS: ATORVASTATIN CALCIUM 40 MG TABLET PO SCH (08:31)
[2021-01-03] MEDS: METOPROLOL SUCCINATE 50 MG ER TABLET PO SCH (08:31)
[2021-01-03] MEDS: ALLOPURINOL 100 MG TABLET PO SCH (08:32)
[2021-01-03] MEDS ORDERED: PANTOPRAZOLE SODIUM 40 MG DR TABLET PO SCH (11:30)
[2021-01-03 11:38] VITALS: BP 136/95
[2021-01-03] MEDS ORDERED: FURO20 PO (11:38)
[2021-01-03] MEDS ORDERED: LISI-892 PO (11:38)
[2021-01-03] MEDS ORDERED: PANT-31 PO (11:38)
[2021-01-03] MEDS ORDERED: APIX5TAB PO (11:38)
[2021-01-03] MEDS ORDERED: METO-391 PO (11:38)
[2021-01-03] MEDS ORDERED: FUROSEMIDE 20 MG TABLET PO SCH (21:00)
[2021-01-03] MEDS ORDERED: APIXABAN 5 MG TABLET PO SCH (21:00)
[2021-01-04] MEDS ORDERED: LISINOPRIL 5 MG TABLET PO SCH (09:00)
== END 2021-01-03 13:50 | disposition home or self-care (01) | DRG 291 ==
LOC: EMS 01:16 → 5S 03:00
PROVIDERS: ADMIT Internal Medicine; ATTEND Internal Medicine
DX: I13.0 Hypertensive heart and chronic kidney disease with heart failure and stage 1 through stage 4 chronic kidney disease, or unspecified chronic kidney disease (principal); I50.43 Acute on chronic combined systolic (congestive) and diastolic (congestive) heart failure; J96.01 Acute respiratory failure with hypoxia; N17.9 Acute kidney failure, unspecified; I48.20 Chronic atrial fibrillation, unspecified; Z20.822 Contact with and (suspected) exposure to COVID-19; I42.8 Other cardiomyopathies; N18.30 Chronic kidney disease, stage 3 unspecified; E78.5 Hyperlipidemia, unspecified; E87.6 Hypokalemia; M10.9 Gout, unspecified; F15.10 Other stimulant abuse, uncomplicated; D50.9 Iron deficiency anemia, unspecified; E78.00 Pure hypercholesterolemia, unspecified; F12.90 Cannabis use, unspecified, uncomplicated; Z87.891 Personal history of nicotine dependence; Z79.899 Other long term (current) drug therapy; Z91.14 Patient's other noncompliance with medication regimen; Z91.19 Patient's noncompliance with other medical treatment and regimen; Z79.01 Long term (current) use of anticoagulants; Z87.11 Personal history of peptic ulcer disease
CPT/HCPCS: 71045; 80053; 81001; 82550; 83735; 83880; 84484; 85025; 85610; 85730; 93005; 93306; 99291; G0480; J1940; J3490; J7060; 36415-L1; 36415-TC

== ENCOUNTER 2021-01-19 12:25 | Emergency (ER) | payer MEDICARE ==
[~2021-01-19] VITALS: Ht 188 cm; Wt 104.5 kg
[~2021-01-19 12:25] MED LIST changes: -APIX2.5T PO; +APIX5TAB PO; +LISI-892 PO; +PANT-31 PO
[2021-01-19 12:33] VITALS: BP 137/99
== END 2021-01-19 13:35 | disposition left against medical advice (07) ==
LOC: EMS 12:25
DX: R06.02 Shortness of breath (principal); Z53.21 Procedure and treatment not carried out due to patient leaving prior to being seen by health care provider

== ENCOUNTER 2021-02-06 02:41 | Emergency (ER) | payer MEDICARE ==
[~2021-02-06] VITALS: Ht 188 cm; Wt 102.3 kg
[2021-02-06 02:42] VITALS: BP 163/101
== END 2021-02-06 03:10 | disposition left against medical advice (07) ==
LOC: EMS 02:42
DX: R06.02 Shortness of breath (principal); Z53.21 Procedure and treatment not carried out due to patient leaving prior to being seen by health care provider

== ENCOUNTER 2021-04-27 12:41 | Inpatient (IN) | payer MEDICARE ==
[~2021-04-27] VITALS: Ht 188 cm; Wt 99.8 kg
[~2021-04-27 12:41] MED LIST changes: -FERR-89 PO; -PANT-31 PO
[2021-04-27 14:28] LABS: BASOPHILS % (AUTO) 0.6 % (0.0-2.0); EOSINOPHILS % (AUTO) 7.8 % (1.0-6.0); HEMATOCRIT 41.6 % (41-53); HEMOGLOBIN 13.7 g/dL (13.5-17.5); LYMPHOCYTES # (AUTO) 0.9 K/uL (1.0-4.8); LYMPHOCYTES % (AUTO) 14.7 % (22.0-44.0); MEAN CORPUSCULAR HEMOGLOBIN 28.3 pg (26.0-34.0); MEAN CORPUSCULAR HGB CONC 32.9 G/dL (31.0-37.0); MEAN CORPUSCULAR VOLUME 86 fL (80-100); MONOCYTES # (AUTO) 0.4 K/uL (0.1-1.0); MONOCYTES % (AUTO) 6.7 % (2.0-9.0); NEUTROPHILS # (AUTO) 4.1 K/uL (1.8-7.7); NEUTROPHILS % (AUTO) 70.2 % (40.0-70.0); PLATELET COUNT (AUTO) 230 K/uL (150-450); RED BLOOD CELL COUNT(AUTO) 4.83 MIL/uL (4.50-5.90); RED CELL DISTRIBUTION WIDTH 16.1 % (11.5-14.5)
[2021-04-27 14:35] LABS: CALCIUM, TOTAL 8.3 mg/dL (8.8-10.5); CREATININE 2.03 mg/dL (0.60-1.30)
[2021-04-27 14:40] LABS: INR 1.1 (0.9-1.1); PROTHROMBIN TIME 11.9 SEC (9.4-11.6)
[2021-04-27 14:41] LABS: ALBUMIN 3.6 g/dL (3.4-5.0); BILIRUBIN,TOTAL 0.8 mg/dL (0.1-1.0); TOTAL PROTEIN, SERUM 7.1 g/dL (6.4-8.2)
[2021-04-27 14:48] LABS: COVID AG,FIA SOURCE NASOPHARYNGEAL
[2021-04-27] MEDS ORDERED: PEG 3350/NA SULF,BICARB,CL/KCL 4000 ML SOLUTION PO ONE (15:30)
[2021-04-27] MEDS ORDERED: 0.9% SODIUM CHLORIDE 10 ML SYRINGE IVP PRN (16:15)
[2021-04-27] MEDS ORDERED: ALBUTEROL SULFATE 2.5 MG/0.5 ML NEB SOLUTION NEB PRN (18:00)
[2021-04-27] MEDS ORDERED: MAGNESIUM HYDROXIDE SUSPENSION 30 ML UDCUP PO PRN (18:00)
[2021-04-27] MEDS ORDERED: BISACODYL 10 MG RECTAL RECTAL SUPPOSITORY PR PRN (18:00)
[2021-04-27] MEDS ORDERED: IPRATROPIUM BROMIDE 0.5 MG/2.5 ML NEB SOLUTION NEB PRN (18:00)
[2021-04-27] MEDS ORDERED: ACETAMINOPHEN 325 MG TABLET PO PRN (18:00)
[2021-04-27 19:12] LABS: HEMATOCRIT 33.8 % (41-53); HEMOGLOBIN 11.1 g/dL (13.5-17.5)
[2021-04-27] MEDS ORDERED: DEXTROSE 5%-0.45% SODIUM CHL 1,000 ML IV ONE (20:00)
[2021-04-27] MEDS: PANTOPRAZOLE SODIUM 80 MG in SODIUM CHLORIDE 0.9% 100 ML IV SCH (20:12)
[2021-04-27] MEDS: SODIUM CHLORIDE 0.9% 1,000 ML IV SCH (20:12)
[2021-04-27] MEDS ORDERED: PANTOPRAZOLE SODIUM 40 MG/VIAL IVP SCH (21:00)
[2021-04-27] MEDS: MORPHINE SULFATE 2 MG/ML SYRINGE IVP PRN (23:55)
[2021-04-27] MEDS: ONDANSETRON HCL 4 MG/2 ML VIAL IVP PRN (23:55)
[2021-04-28] VITALS (18 sets, daily range): BP systolic 82–133; BP diastolic 42–69
[2021-04-28] MEDS ORDERED: SODIUM CHLORIDE 0.9% 250 ML IV ONE (00:15)
[2021-04-28 02:34] LABS: APPEARANCE,URINE CLEAR (CLEAR); BILIRUBIN,URINE NEGATIVE (NEGATIVE); GLUCOSE, URINE (UA) NEGATIVE (NEGATIVE); KETONES,URINE NEGATIVE (NEGATIVE); LEUKOCYTE ESTERASE ,URINE NEGATIVE (NEGATIVE); NITRATE,URINE NEGATIVE (NEGATIVE); OCCULT BLOOD,URINE TRACE (NEGATIVE); PH,URINE 5.5 (5.0-8.0); PROTEIN,URINE NEGATIVE (NEGATIVE); UROBILINOGEN,URINE 0.2 mg/dL (<=1.0)
[2021-04-28 03:00] LABS: BACTERIA,URINE None Seen /HPF (None Seen); RBC,URINE 0-2 /HPF (0-2); WBC,URINE None Seen /HPF (0-5)
[2021-04-28] MEDS: MORPHINE SULFATE 2 MG/ML SYRINGE IVP PRN (04:43)
[2021-04-28] MEDS ORDERED: PHENYLEPHRINE 200 MG/D5%-WATER 250 ML IV PRN (04:45)
[2021-04-28] MEDS: ONDANSETRON HCL 4 MG/2 ML VIAL IVP PRN ×2 (04:45→05:59)
[2021-04-28] MEDS: PANTOPRAZOLE SODIUM 80 MG in SODIUM CHLORIDE 0.9% 100 ML IV SCH ×2 (04:56→16:00)
[2021-04-28 05:48] LABS: BASOPHILS % (AUTO) 0.2 % (0.0-2.0); EOSINOPHILS % (AUTO) 0.1 % (1.0-6.0); HEMATOCRIT 28.9 % (41-53); HEMOGLOBIN 9.5 g/dL (13.5-17.5); LYMPHOCYTES # (AUTO) 1.2 K/uL (1.0-4.8); MEAN CORPUSCULAR HGB CONC 32.8 G/dL (31.0-37.0); MEAN CORPUSCULAR VOLUME 88 fL (80-100); MONOCYTES # (AUTO) 0.3 K/uL (0.1-1.0); MONOCYTES % (AUTO) 3.3 % (2.0-9.0); NEUTROPHILS # (AUTO) 8.3 K/uL (1.8-7.7); NEUTROPHILS % (AUTO) 84.4 % (40.0-70.0); PLATELET COUNT (AUTO) 198 K/uL (150-450); RED BLOOD CELL COUNT(AUTO) 3.27 MIL/uL (4.50-5.90); RED CELL DISTRIBUTION WIDTH 16.4 % (11.5-14.5)
[2021-04-28 06:09] LABS: ALBUMIN 2.8 g/dL (3.4-5.0); BILIRUBIN,TOTAL 0.9 mg/dL (0.1-1.0); CALCIUM, TOTAL 7.7 mg/dL (8.8-10.5); CREATININE 2.33 mg/dL (0.60-1.30); POTASSIUM 4.6 mmol/L (3.5-5.1); TOTAL PROTEIN, SERUM 5.6 g/dL (6.4-8.2)
[2021-04-28] MEDS ORDERED: EPINEPHrine 1:10,000 [1 MG/10 ML] SYRINGE ONE (06:28)
[2021-04-28] MEDS: SODIUM CHLORIDE 0.9% 1,000 ML IV SCH ×2 (07:58→22:36)
[2021-04-28 13:12] LABS: HEMATOCRIT 23.2 % (41-53); HEMOGLOBIN 7.6 g/dL (13.5-17.5)
[2021-04-28] MEDS ORDERED: [UNRECOGNIZED DRUG - MIXTURE] IV ONE (18:00)
[2021-04-28] MEDS ORDERED: SODIUM CHLORIDE 0.9% 100 ML IV ONE (18:30)
[2021-04-28] MEDS ORDERED: PHYTONADIONE 10 MG in SODIUM CHLORIDE 0.9% 50 ML IV ONE (18:30)
[2021-04-28] MEDS ORDERED: FUROSEMIDE 20 MG/2 ML VIAL IVP ONE (19:00)
[2021-04-28] MEDS ORDERED: IOHEXOL 350 MG/ML 150 ML VIAL ONE (19:47)
[2021-04-28] MEDS ORDERED: SODIUM CHLORIDE 0.9% 100 ML ONE (19:47)
[2021-04-28 22:09] LABS: HEMATOCRIT 27.2 % (41-53); HEMOGLOBIN 9.3 g/dL (13.5-17.5)
[2021-04-29] VITALS (10 sets, daily range): BP systolic 103–159; BP diastolic 46–99
[2021-04-29] MEDS: PANTOPRAZOLE SODIUM 80 MG in SODIUM CHLORIDE 0.9% 100 ML IV SCH ×2 (05:30→12:24)
[2021-04-29 05:41] LABS: HEMATOCRIT 24.9 % (41-53); HEMOGLOBIN 8.6 g/dL (13.5-17.5)
[2021-04-29] MEDS ORDERED: ROCURONIUM BROMIDE 10 MG/ML 5 ML VIAL IVP ONE (07:08)
[2021-04-29] MEDS ORDERED: PROPOFOL 1% 20 ML VIAL IVP ONE (07:08)
[2021-04-29 08:48] LABS: BASOPHILS % (AUTO) 0.2 % (0.0-2.0); EOSINOPHILS % (AUTO) 0.2 % (1.0-6.0); HEMATOCRIT 22.9 % (41-53); HEMOGLOBIN 7.8 g/dL (13.5-17.5); LYMPHOCYTES % (AUTO) 11.4 % (22.0-44.0); MEAN CORPUSCULAR HEMOGLOBIN 30.3 pg (26.0-34.0); MEAN CORPUSCULAR HGB CONC 34.1 G/dL (31.0-37.0); MEAN CORPUSCULAR VOLUME 89 fL (80-100); MONOCYTES % (AUTO) 11.8 % (2.0-9.0); NEUTROPHILS # (AUTO) 6.7 K/uL (1.8-7.7); NEUTROPHILS % (AUTO) 76.4 % (40.0-70.0); PLATELET COUNT (AUTO) 136 K/uL (150-450); RED BLOOD CELL COUNT(AUTO) 2.58 MIL/uL (4.50-5.90); RED CELL DISTRIBUTION WIDTH 16.2 % (11.5-14.5)
[2021-04-29 09:03] LABS: ALBUMIN 2.5 g/dL (3.4-5.0); BILIRUBIN,TOTAL 1.1 mg/dL (0.1-1.0); CALCIUM, TOTAL 6.9 mg/dL (8.8-10.5); CREATININE 2.38 mg/dL (0.60-1.30); TOTAL PROTEIN, SERUM 4.7 g/dL (6.4-8.2)
[2021-04-29] MEDS ORDERED: SODIUM CHLORIDE 0.9% 500 ML IV ONE (10:32)
[2021-04-29] MEDS: SODIUM CHLORIDE 0.9% 1,000 ML IV SCH (12:12)
[2021-04-29] MEDS ORDERED: DESMOPRESSIN ACETATE 30 MCG in SODIUM CHLORIDE 0.9% 50 ML IV ONE (13:00)
[2021-04-29 13:06] LABS: HEMATOCRIT 26.7 % (41-53)
[2021-04-29] MEDS ORDERED: SODIUM CHLORIDE 0.9% 250 ML IV ONE (13:52)
[2021-04-29 22:32] LABS: HEMATOCRIT 24.9 % (41-53); HEMOGLOBIN 8.6 g/dL (13.5-17.5)
[2021-04-30] VITALS (9 sets, daily range): BP systolic 110–166; BP diastolic 67–92
[2021-04-30] MEDS: PANTOPRAZOLE SODIUM 80 MG in SODIUM CHLORIDE 0.9% 100 ML IV SCH ×3 (02:54→23:28)
[2021-04-30] MEDS: SODIUM CHLORIDE 0.9% 1,000 ML IV SCH ×2 (02:58→20:11)
[2021-04-30 06:14] LABS: CALCIUM, TOTAL 7.5 mg/dL (8.8-10.5); CREATININE 1.76 mg/dL (0.60-1.30); MAGNESIUM 2.2 mg/dL (1.80-2.40); PHOSPHORUS 3.4 mg/dL (2.5-4.9); POTASSIUM 3.8 mmol/L (3.5-5.1)
[2021-04-30 08:09] LABS: HEMATOCRIT 22.9 % (41-53); HEMOGLOBIN 7.9 g/dL (13.5-17.5)
[2021-04-30] MEDS: ETHYL ALCOHOL 62% ANTISEPTIC NASAL INHALANT 0.6 ML AMPUL NASAL SCH ×2 (09:43→20:11)
[2021-04-30] MEDS: EPOETIN ALFA 10,000 UNITS/ML VIAL SQ SCH (09:43)
[2021-04-30 13:20] LABS: HEMATOCRIT 22.3 % (41-53); HEMOGLOBIN 7.4 g/dL (13.5-17.5)
[2021-04-30] MEDS ORDERED: SODIUM CHLORIDE 0.9% 250 ML IV ONE (16:06)
[2021-04-30 19:26] LABS: HEMATOCRIT 23.6 % (41-53)
[2021-05-01] VITALS: BP 134/73
[2021-05-01 04:00] VITALS: BP 118/80
[2021-05-01 06:29] LABS: CALCIUM, TOTAL 7.4 mg/dL (8.8-10.5); CREATININE 1.21 mg/dL (0.60-1.30); PHOSPHORUS 2.4 mg/dL (2.5-4.9); POTASSIUM 3.4 mmol/L (3.5-5.1)
[2021-05-01 06:50] LABS: BASOPHILS % (AUTO) 0.3 % (0.0-2.0); EOSINOPHILS % (AUTO) 1.9 % (1.0-6.0); HEMATOCRIT 23.2 % (41-53); HEMOGLOBIN 7.9 g/dL (13.5-17.5); LYMPHOCYTES # (AUTO) 0.6 K/uL (1.0-4.8); LYMPHOCYTES % (AUTO) 11.1 % (22.0-44.0); MEAN CORPUSCULAR HEMOGLOBIN 30.1 pg (26.0-34.0); MEAN CORPUSCULAR HGB CONC 33.9 G/dL (31.0-37.0); MEAN CORPUSCULAR VOLUME 89 fL (80-100); MONOCYTES # (AUTO) 0.6 K/uL (0.1-1.0); NEUTROPHILS # (AUTO) 4.4 K/uL (1.8-7.7); NEUTROPHILS % (AUTO) 75.7 % (40.0-70.0); PLATELET COUNT (AUTO) 123 K/uL (150-450); RED BLOOD CELL COUNT(AUTO) 2.62 MIL/uL (4.50-5.90); RED CELL DISTRIBUTION WIDTH 15.5 % (11.5-14.5)
[2021-05-01 08:00] VITALS: BP 164/97
[2021-05-01] MEDS: SODIUM CHLORIDE 0.9% 1,000 ML IV SCH ×2 (09:26→16:32)
[2021-05-01] MEDS: ETHYL ALCOHOL 62% ANTISEPTIC NASAL INHALANT 0.6 ML AMPUL NASAL SCH ×2 (09:26→22:13)
[2021-05-01] MEDS: PANTOPRAZOLE SODIUM 80 MG in SODIUM CHLORIDE 0.9% 100 ML IV SCH ×2 (09:27→22:00)
[2021-05-01] MEDS ORDERED: POTASSIUM CHLORIDE 10 MEQ ER TABLET PO ONE (10:15)
[2021-05-01] MEDS: SODIUM,POTASSIUM PHOSPHATES POWDER PACKET PO SCH ×2 (11:34→22:13)
[2021-05-01 12:00] VITALS: BP 166/98
[2021-05-01 12:04] LABS: HEMATOCRIT 25.4 % (41-53); HEMOGLOBIN 8.8 g/dL (13.5-17.5)
[2021-05-01 16:00] VITALS: BP 160/96
[2021-05-01] MEDS: METOPROLOL TARTRATE 25 MG TABLET PO SCH (22:13)
[2021-05-02 04:00] VITALS: BP 116/86
[2021-05-02] MEDS: SODIUM CHLORIDE 0.9% 1,000 ML IV SCH (06:44)
[2021-05-02] MEDS: PANTOPRAZOLE SODIUM 80 MG in SODIUM CHLORIDE 0.9% 100 ML IV SCH (06:44)
[2021-05-02 08:00] VITALS: BP 186/101
[2021-05-02 08:10] LABS: BASOPHILS % (AUTO) 0.3 % (0.0-2.0); EOSINOPHILS % (AUTO) 2.8 % (1.0-6.0); HEMATOCRIT 25.2 % (41-53); HEMOGLOBIN 8.8 g/dL (13.5-17.5); LYMPHOCYTES # (AUTO) 0.6 K/uL (1.0-4.8); LYMPHOCYTES % (AUTO) 9.8 % (22.0-44.0); MEAN CORPUSCULAR HEMOGLOBIN 30.4 pg (26.0-34.0); MEAN CORPUSCULAR HGB CONC 34.8 G/dL (31.0-37.0); MEAN CORPUSCULAR VOLUME 87 fL (80-100); MONOCYTES # (AUTO) 0.7 K/uL (0.1-1.0); MONOCYTES % (AUTO) 12.2 % (2.0-9.0); NEUTROPHILS # (AUTO) 4.3 K/uL (1.8-7.7); NEUTROPHILS % (AUTO) 74.9 % (40.0-70.0); PLATELET COUNT (AUTO) 169 K/uL (150-450); RED BLOOD CELL COUNT(AUTO) 2.89 MIL/uL (4.50-5.90); RED CELL DISTRIBUTION WIDTH 15.7 % (11.5-14.5)
[2021-05-02] MEDS: EPOETIN ALFA 10,000 UNITS/ML VIAL SQ SCH (08:25)
[2021-05-02] MEDS: ETHYL ALCOHOL 62% ANTISEPTIC NASAL INHALANT 0.6 ML AMPUL NASAL SCH ×2 (08:25→20:04)
[2021-05-02] MEDS: METOPROLOL TARTRATE 25 MG TABLET PO SCH (08:25)
[2021-05-02 08:30] LABS: CALCIUM, TOTAL 8.1 mg/dL (8.8-10.5); CREATININE 1.21 mg/dL (0.60-1.30); POTASSIUM 3.3 mmol/L (3.5-5.1)
[2021-05-02 08:36] LABS: ALBUMIN 2.9 g/dL (3.4-5.0); BILIRUBIN,TOTAL 1.1 mg/dL (0.1-1.0)
[2021-05-02] MEDS ORDERED: POTASSIUM CHLORIDE 20 MEQ ER TABLET PO ONE (11:00)
[2021-05-02] MEDS ORDERED: METOPROLOL TARTRATE 50 MG TABLET PO SCH ×2 (11:15→21:00)
[2021-05-02] MEDS: METOPROLOL TARTRATE 50 MG TABLET PO SCH ×2 (11:29→20:04)
[2021-05-02 12:00] VITALS: BP 100/63
[2021-05-02 15:22] VITALS: BP 160/92
[2021-05-02 19:32] VITALS: BP 155/83
[2021-05-02] MEDS: HYDROCODONE/ACETAMINOPHEN 5-325 MG TABLET PO PRN (20:04)
[2021-05-02] MEDS: ZOLPIDEM TARTRATE 5 MG TABLET PO PRN (20:04)
[2021-05-02] MEDS: PANTOPRAZOLE SODIUM 40 MG DR TABLET PO SCH (20:04)
[2021-05-03] VITALS: BP 139/84
[2021-05-03 04:00] VITALS: BP 123/67
[2021-05-03] MEDS: HYDROCODONE/ACETAMINOPHEN 5-325 MG TABLET PO PRN (06:00)
[2021-05-03 06:49] LABS: BASOPHILS % (AUTO) 0.6 % (0.0-2.0); EOSINOPHILS % (AUTO) 6.6 % (1.0-6.0); HEMOGLOBIN 8.8 g/dL (13.5-17.5); LYMPHOCYTES # (AUTO) 0.6 K/uL (1.0-4.8); LYMPHOCYTES % (AUTO) 12.3 % (22.0-44.0); MEAN CORPUSCULAR HEMOGLOBIN 30.8 pg (26.0-34.0); MEAN CORPUSCULAR HGB CONC 35.3 G/dL (31.0-37.0); MEAN CORPUSCULAR VOLUME 88 fL (80-100); MONOCYTES # (AUTO) 0.6 K/uL (0.1-1.0); MONOCYTES % (AUTO) 12.2 % (2.0-9.0); NEUTROPHILS # (AUTO) 3.6 K/uL (1.8-7.7); NEUTROPHILS % (AUTO) 68.3 % (40.0-70.0); PLATELET COUNT (AUTO) 190 K/uL (150-450); RED BLOOD CELL COUNT(AUTO) 2.86 MIL/uL (4.50-5.90); RED CELL DISTRIBUTION WIDTH 15.9 % (11.5-14.5)
[2021-05-03 07:11] LABS: ALBUMIN 2.8 g/dL (3.4-5.0); BILIRUBIN,TOTAL 1.1 mg/dL (0.1-1.0); CALCIUM, TOTAL 8.1 mg/dL (8.8-10.5); CREATININE 1.37 mg/dL (0.60-1.30); POTASSIUM 3.6 mmol/L (3.5-5.1); TOTAL PROTEIN, SERUM 6.1 g/dL (6.4-8.2)
[2021-05-03] MEDS: ETHYL ALCOHOL 62% ANTISEPTIC NASAL INHALANT 0.6 ML AMPUL NASAL SCH ×2 (08:56→21:26)
[2021-05-03] MEDS: PANTOPRAZOLE SODIUM 40 MG DR TABLET PO SCH ×2 (08:57→21:26)
[2021-05-03] MEDS: ALLOPURINOL 100 MG TABLET PO SCH (08:57)
[2021-05-03] MEDS: METOPROLOL TARTRATE 50 MG TABLET PO SCH ×2 (08:57→21:26)
[2021-05-03 10:53] VITALS: BP 158/88
[2021-05-03 15:49] VITALS: BP 140/96
[2021-05-03 19:50] VITALS: BP 136/78
[2021-05-03 23:19] VITALS: BP 134/65
[2021-05-04 03:38] VITALS: BP 122/74
[2021-05-04 07:43] VITALS: BP 134/91
[2021-05-04] MEDS: PANTOPRAZOLE SODIUM 40 MG DR TABLET PO SCH ×2 (08:26→20:09)
[2021-05-04] MEDS: ALLOPURINOL 100 MG TABLET PO SCH (08:26)
[2021-05-04] MEDS: ETHYL ALCOHOL 62% ANTISEPTIC NASAL INHALANT 0.6 ML AMPUL NASAL SCH ×2 (08:26→20:08)
[2021-05-04] MEDS: METOPROLOL TARTRATE 50 MG TABLET PO SCH ×2 (08:26→20:09)
[2021-05-04 08:32] LABS: BASOPHILS % (AUTO) 0.2 % (0.0-2.0); HEMATOCRIT 24.6 % (41-53); HEMOGLOBIN 8.6 g/dL (13.5-17.5); LYMPHOCYTES # (AUTO) 0.5 K/uL (1.0-4.8); LYMPHOCYTES % (AUTO) 9.4 % (22.0-44.0); MEAN CORPUSCULAR HEMOGLOBIN 30.4 pg (26.0-34.0); MEAN CORPUSCULAR HGB CONC 35.1 G/dL (31.0-37.0); MEAN CORPUSCULAR VOLUME 87 fL (80-100); MONOCYTES # (AUTO) 0.6 K/uL (0.1-1.0); MONOCYTES % (AUTO) 11.1 % (2.0-9.0); NEUTROPHILS # (AUTO) 4.2 K/uL (1.8-7.7); NEUTROPHILS % (AUTO) 74.3 % (40.0-70.0); PLATELET COUNT (AUTO) 224 K/uL (150-450); RED BLOOD CELL COUNT(AUTO) 2.85 MIL/uL (4.50-5.90); RED CELL DISTRIBUTION WIDTH 15.7 % (11.5-14.5)
[2021-05-04 09:00] LABS: ALBUMIN 2.7 g/dL (3.4-5.0); CALCIUM, TOTAL 8.3 mg/dL (8.8-10.5); CREATININE 1.31 mg/dL (0.60-1.30); MAGNESIUM 2.1 mg/dL (1.80-2.40); PHOSPHORUS 3.6 mg/dL (2.5-4.9); POTASSIUM 3.7 mmol/L (3.5-5.1); TOTAL PROTEIN, SERUM 6.1 g/dL (6.4-8.2)
[2021-05-04 11:12] VITALS: BP 132/70
[2021-05-04] MEDS: HYDROCODONE/ACETAMINOPHEN 5-325 MG TABLET PO PRN ×2 (11:21→20:09)
[2021-05-04 15:38] VITALS: BP 136/78
[2021-05-04 19:25] VITALS: BP 127/91
[2021-05-04] MEDS: ZOLPIDEM TARTRATE 5 MG TABLET PO PRN (20:09)
[2021-05-04 23:32] VITALS: BP 132/76
[2021-05-05 03:56] VITALS: BP 136/75
[2021-05-05 07:02] LABS: BASOPHILS % (AUTO) 0.4 % (0.0-2.0); EOSINOPHILS % (AUTO) 5.9 % (1.0-6.0); HEMATOCRIT 23.5 % (41-53); HEMOGLOBIN 8.3 g/dL (13.5-17.5); LYMPHOCYTES # (AUTO) 0.5 K/uL (1.0-4.8); LYMPHOCYTES % (AUTO) 9.7 % (22.0-44.0); MEAN CORPUSCULAR HGB CONC 35.3 G/dL (31.0-37.0); MEAN CORPUSCULAR VOLUME 88 fL (80-100); MONOCYTES # (AUTO) 0.7 K/uL (0.1-1.0); MONOCYTES % (AUTO) 13.2 % (2.0-9.0); NEUTROPHILS % (AUTO) 70.8 % (40.0-70.0); PLATELET COUNT (AUTO) 256 K/uL (150-450); RED BLOOD CELL COUNT(AUTO) 2.68 MIL/uL (4.50-5.90); RED CELL DISTRIBUTION WIDTH 15.3 % (11.5-14.5)
[2021-05-05 07:28] LABS: ALBUMIN 2.6 g/dL (3.4-5.0); BILIRUBIN,TOTAL 0.9 mg/dL (0.1-1.0); CALCIUM, TOTAL 8.3 mg/dL (8.8-10.5); CREATININE 1.33 mg/dL (0.60-1.30); POTASSIUM 4.2 mmol/L (3.5-5.1); TOTAL PROTEIN, SERUM 6.1 g/dL (6.4-8.2)
[2021-05-05 08:30] VITALS: BP 116/73
[2021-05-05] MEDS: METOPROLOL TARTRATE 50 MG TABLET PO SCH (08:37)
[2021-05-05] MEDS: PANTOPRAZOLE SODIUM 40 MG DR TABLET PO SCH ×2 (08:37→20:26)
[2021-05-05] MEDS: ETHYL ALCOHOL 62% ANTISEPTIC NASAL INHALANT 0.6 ML AMPUL NASAL SCH ×2 (08:37→20:25)
[2021-05-05] MEDS: MORPHINE SULFATE 2 MG/ML SYRINGE IVP PRN ×2 (08:39→18:39)
[2021-05-05] MEDS: EPOETIN ALFA 10,000 UNITS/ML VIAL SQ SCH (08:39)
[2021-05-05] MEDS: ALLOPURINOL 100 MG TABLET PO SCH (08:39)
[2021-05-05] MEDS ORDERED: WARFARIN SODIUM 2 MG TABLET PO ONE (12:00)
[2021-05-05 16:08] VITALS: BP 150/80
[2021-05-05 19:28] VITALS: BP 130/85
[2021-05-05] MEDS: HYDROCODONE/ACETAMINOPHEN 5-325 MG TABLET PO PRN (20:26)
[2021-05-06] VITALS (8 sets, daily range): BP systolic 100–161; BP diastolic 56–84
[2021-05-06] MEDS: HYDROCODONE/ACETAMINOPHEN 5-325 MG TABLET PO PRN ×3 (06:16→21:08)
[2021-05-06 08:24] LABS: BASOPHILS % (AUTO) 0.5 % (0.0-2.0); EOSINOPHILS % (AUTO) 4.8 % (1.0-6.0); HEMATOCRIT 23.6 % (41-53); HEMOGLOBIN 8.1 g/dL (13.5-17.5); LYMPHOCYTES # (AUTO) 0.6 K/uL (1.0-4.8); LYMPHOCYTES % (AUTO) 8.8 % (22.0-44.0); MEAN CORPUSCULAR HEMOGLOBIN 30.1 pg (26.0-34.0); MEAN CORPUSCULAR HGB CONC 34.4 G/dL (31.0-37.0); MEAN CORPUSCULAR VOLUME 87 fL (80-100); MONOCYTES # (AUTO) 0.9 K/uL (0.1-1.0); MONOCYTES % (AUTO) 13.2 % (2.0-9.0); NEUTROPHILS # (AUTO) 4.7 K/uL (1.8-7.7); NEUTROPHILS % (AUTO) 72.7 % (40.0-70.0); PLATELET COUNT (AUTO) 291 K/uL (150-450); RED CELL DISTRIBUTION WIDTH 15.3 % (11.5-14.5)
[2021-05-06] MEDS: MORPHINE SULFATE 2 MG/ML SYRINGE IVP PRN (08:24)
[2021-05-06] MEDS: ALLOPURINOL 100 MG TABLET PO SCH (08:24)
[2021-05-06] MEDS: PANTOPRAZOLE SODIUM 40 MG DR TABLET PO SCH ×2 (08:25→21:08)
[2021-05-06] MEDS: ETHYL ALCOHOL 62% ANTISEPTIC NASAL INHALANT 0.6 ML AMPUL NASAL SCH ×2 (08:25→21:07)
[2021-05-06] MEDS: METOPROLOL SUCCINATE 50 MG ER TABLET PO SCH (08:25)
[2021-05-06 08:36] LABS: PROTHROMBIN TIME 10.9 SEC (9.4-11.6)
[2021-05-06 08:42] LABS: ALBUMIN 2.6 g/dL (3.4-5.0); BILIRUBIN,TOTAL 0.9 mg/dL (0.1-1.0); CALCIUM, TOTAL 7.9 mg/dL (8.8-10.5); CREATININE 1.28 mg/dL (0.60-1.30); POTASSIUM 4.2 mmol/L (3.5-5.1); TOTAL PROTEIN, SERUM 6.3 g/dL (6.4-8.2)
[2021-05-06] MEDS ORDERED: WARFARIN SODIUM 5 MG TABLET PO STA (09:32)
[2021-05-06] MEDS ORDERED: LIDOCAINE 2% VISCOUS 15 ML SOLUTION UDCUP ONE (11:13)
[2021-05-06] MEDS ORDERED: MIDAZOLAM HCL 2 MG/2 ML VIAL ONE (11:25)
[2021-05-06] MEDS ORDERED: FentaNYL CITRATE PF 100 MCG/2 ML VIAL ONE (11:25)
[2021-05-06] MEDS ORDERED: FentaNYL CITRATE PF 100 MCG/2 ML VIAL IVP ONE (18:15)
[2021-05-06] MEDS ORDERED: MIDAZOLAM HCL 2 MG/2 ML VIAL IVP ONE (18:15)
[2021-05-07] VITALS (7 sets, daily range): BP systolic 111–136; BP diastolic 7–86
[2021-05-07] MEDS: HYDROCODONE/ACETAMINOPHEN 5-325 MG TABLET PO PRN ×3 (03:35→21:09)
[2021-05-07 07:00] LABS: BASOPHILS % (AUTO) 0.6 % (0.0-2.0); EOSINOPHILS % (AUTO) 3.6 % (1.0-6.0); HEMATOCRIT 25.1 % (41-53); HEMOGLOBIN 8.5 g/dL (13.5-17.5); LYMPHOCYTES # (AUTO) 0.7 K/uL (1.0-4.8); LYMPHOCYTES % (AUTO) 9.1 % (22.0-44.0); MEAN CORPUSCULAR HEMOGLOBIN 29.4 pg (26.0-34.0); MEAN CORPUSCULAR VOLUME 87 fL (80-100); MONOCYTES % (AUTO) 14.3 % (2.0-9.0); NEUTROPHILS # (AUTO) 5.3 K/uL (1.8-7.7); NEUTROPHILS % (AUTO) 72.4 % (40.0-70.0); PLATELET COUNT (AUTO) 371 K/uL (150-450); RED BLOOD CELL COUNT(AUTO) 2.89 MIL/uL (4.50-5.90); RED CELL DISTRIBUTION WIDTH 15.6 % (11.5-14.5)
[2021-05-07 07:09] LABS: INR 1.1 (0.9-1.1); PROTHROMBIN TIME 11.6 SEC (9.4-11.6)
[2021-05-07 07:18] LABS: ALBUMIN 2.6 g/dL (3.4-5.0); BILIRUBIN,TOTAL 0.9 mg/dL (0.1-1.0); CALCIUM, TOTAL 8.3 mg/dL (8.8-10.5); CREATININE 1.43 mg/dL (0.60-1.30); POTASSIUM 4.1 mmol/L (3.5-5.1); TOTAL PROTEIN, SERUM 6.8 g/dL (6.4-8.2)
[2021-05-07] MEDS: ETHYL ALCOHOL 62% ANTISEPTIC NASAL INHALANT 0.6 ML AMPUL NASAL SCH ×2 (08:16→21:09)
[2021-05-07] MEDS: ALLOPURINOL 100 MG TABLET PO SCH (08:17)
[2021-05-07] MEDS: LOSARTAN POTASSIUM 25 MG TABLET PO SCH (08:17)
[2021-05-07] MEDS: PANTOPRAZOLE SODIUM 40 MG DR TABLET PO SCH ×2 (08:17→21:09)
[2021-05-07] MEDS: METOPROLOL SUCCINATE 50 MG ER TABLET PO SCH (08:17)
[2021-05-07] MEDS ORDERED: WARFARIN SODIUM 5 MG TABLET PO STA (08:55)
[2021-05-07] MEDS: EPOETIN ALFA 10,000 UNITS/ML VIAL SQ SCH (11:27)
[2021-05-07] MEDS ORDERED: PredniSONE 20 MG TABLET PO ONE (21:00)
[2021-05-07] MEDS: ZOLPIDEM TARTRATE 5 MG TABLET PO PRN (21:09)
[2021-05-07] MEDS ORDERED: METOPROLOL SUCCINATE 25 MG ER TABLET PO ONE (22:15)
[2021-05-07] MEDS ORDERED: DIGOXIN 250 MCG/ML 2 ML AMP IVP ONE (22:15)
[2021-05-08 04:52] VITALS: BP 123/71
[2021-05-08 06:18] LABS: BASOPHILS % (AUTO) 0.4 % (0.0-2.0); EOSINOPHILS % (AUTO) 0.2 % (1.0-6.0); HEMATOCRIT 24.8 % (41-53); HEMOGLOBIN 8.4 g/dL (13.5-17.5); LYMPHOCYTES # (AUTO) 0.3 K/uL (1.0-4.8); LYMPHOCYTES % (AUTO) 3.7 % (22.0-44.0); MEAN CORPUSCULAR HEMOGLOBIN 29.9 pg (26.0-34.0); MEAN CORPUSCULAR HGB CONC 34.1 G/dL (31.0-37.0); MEAN CORPUSCULAR VOLUME 88 fL (80-100); MONOCYTES # (AUTO) 0.2 K/uL (0.1-1.0); MONOCYTES % (AUTO) 2.6 % (2.0-9.0); NEUTROPHILS # (AUTO) 6.6 K/uL (1.8-7.7); PLATELET COUNT (AUTO) 408 K/uL (150-450); RED BLOOD CELL COUNT(AUTO) 2.82 MIL/uL (4.50-5.90); RED CELL DISTRIBUTION WIDTH 15.4 % (11.5-14.5)
[2021-05-08 06:30] LABS: INR 1.1 (0.9-1.1); PROTHROMBIN TIME 11.9 SEC (9.4-11.6)
[2021-05-08 06:35] LABS: ALBUMIN 2.6 g/dL (3.4-5.0); BILIRUBIN,TOTAL 0.5 mg/dL (0.1-1.0); CALCIUM, TOTAL 8.4 mg/dL (8.8-10.5); CREATININE 1.34 mg/dL (0.60-1.30); POTASSIUM 5.1 mmol/L (3.5-5.1); TOTAL PROTEIN, SERUM 6.9 g/dL (6.4-8.2)
[2021-05-08 07:06] LABS: NEUTROPHILS % (AUTO) 93.1 % (40.0-70.0)
[2021-05-08 07:13] VITALS: BP 139/93
[2021-05-08] MEDS ORDERED: METOPROLOL SUCCINATE 50 MG ER TABLET PO SCH (09:00)
[2021-05-08] MEDS ORDERED: PredniSONE 20 MG TABLET PO SCH (09:00)
[2021-05-08] MEDS: ALLOPURINOL 100 MG TABLET PO SCH (09:08)
[2021-05-08] MEDS: ETHYL ALCOHOL 62% ANTISEPTIC NASAL INHALANT 0.6 ML AMPUL NASAL SCH ×2 (09:09→20:21)
[2021-05-08] MEDS: PANTOPRAZOLE SODIUM 40 MG DR TABLET PO SCH ×2 (09:10→20:20)
[2021-05-08] MEDS: LOSARTAN POTASSIUM 25 MG TABLET PO SCH (09:10)
[2021-05-08] MEDS ORDERED: WARFARIN SODIUM 7.5 MG TABLET PO STA (09:20)
[2021-05-08 10:48] VITALS: BP 124/76
[2021-05-08 15:13] VITALS: BP 123/83
[2021-05-08 19:10] VITALS: BP 143/79
[2021-05-08] MEDS: HYDROCODONE/ACETAMINOPHEN 5-325 MG TABLET PO PRN (20:21)
[2021-05-08] MEDS: ZOLPIDEM TARTRATE 5 MG TABLET PO PRN (22:10)
[2021-05-08 23:15] VITALS: BP 142/77
[2021-05-09] MEDS ORDERED: WARFARIN SODIUM 5 MG TABLET PO SCH (17:00)
== END 2021-05-09 01:20 | disposition left against medical advice (07) | DRG 377 ==
LOC: EMS 12:41 → ICU 04-28 01:00 → 5S 05-02 14:00
PROVIDERS: ADMIT Hospitalist; ATTEND Hospitalist
PROC: 0W3P8ZZ Control Bleeding in Gastrointestinal Tract, Via Natural or Artificial Opening Endoscopic (ICD-10-PCS; 2021-04-28)
PROC: 30233N1 Transfusion of Nonautologous Red Blood Cells into Peripheral Vein, Percutaneous Approach (ICD-10-PCS; principal; 2021-04-28 07:00)
PROC: 5A1935Z Respiratory Ventilation, Less than 24 Consecutive Hours (ICD-10-PCS; 2021-05-01)
PROC: 0BH17EZ Insertion of Endotracheal Airway into Trachea, Via Natural or Artificial Opening (ICD-10-PCS; 2021-05-01)
DX: K57.31 Diverticulosis of large intestine without perforation or abscess with bleeding (principal); I50.43 Acute on chronic combined systolic (congestive) and diastolic (congestive) heart failure; I13.0 Hypertensive heart and chronic kidney disease with heart failure and stage 1 through stage 4 chronic kidney disease, or unspecified chronic kidney disease; N17.9 Acute kidney failure, unspecified; E87.0 Hyperosmolality and hypernatremia; I48.19 Other persistent atrial fibrillation; K64.8 Other hemorrhoids; N18.9 Chronic kidney disease, unspecified; I50.9 Heart failure, unspecified; E78.5 Hyperlipidemia, unspecified; D50.0 Iron deficiency anemia secondary to blood loss (chronic); E83.39 Other disorders of phosphorus metabolism; E87.6 Hypokalemia; M10.9 Gout, unspecified; E78.00 Pure hypercholesterolemia, unspecified; Z20.822 Contact with and (suspected) exposure to COVID-19; Z53.29 Procedure and treatment not carried out because of patient's decision for other reasons; Z79.01 Long term (current) use of anticoagulants; Z79.899 Other long term (current) drug therapy; Z87.891 Personal history of nicotine dependence
CPT/HCPCS: 71045; 72191; 74175; 74176; 80048; 80053; 81001; 83690; 83735; 83880; 84100; 85014; 85018; 85025; 85610; 85730; 86850; 86900; 86901; 86920; 86923; 87081; 93005; 93312; 99291; C9113; G0378; J0171; J0885; J1160; J1940; J2250; J2270; J2370; J2405; J2597; J2704; J3010; J3430; J3490; J7030; J7040; J7050; P9016; Q9967; 36415-L1; 36415-TC

== ENCOUNTER 2021-07-24 00:01 | Inpatient (IN) | payer MEDICARE ==
[~2021-07-24] VITALS: Ht 188 cm; Wt 104.5 kg
[~2021-07-24 00:01] MED LIST changes: +ALLO-97 PO; -ALLO100T2 PO
[2021-07-24 01:15] LABS: BASOPHILS % (AUTO) 0.9 % (0.0-2.0); EOSINOPHILS % (AUTO) 11.7 % (1.0-6.0); HEMATOCRIT 33.2 % (41-53); HEMOGLOBIN 9.9 g/dL (13.5-17.5); LYMPHOCYTES # (AUTO) 0.9 K/uL (1.0-4.8); MEAN CORPUSCULAR HEMOGLOBIN 20.9 pg (26.0-34.0); MEAN CORPUSCULAR HGB CONC 29.7 G/dL (31.0-37.0); MEAN CORPUSCULAR VOLUME 70 fL (80-100); MONOCYTES # (AUTO) 0.6 K/uL (0.1-1.0); MONOCYTES % (AUTO) 9.3 % (2.0-9.0); NEUTROPHILS # (AUTO) 3.9 K/uL (1.8-7.7); NEUTROPHILS % (AUTO) 64.1 % (40.0-70.0); PLATELET COUNT (AUTO) 276 K/uL (150-450); RED BLOOD CELL COUNT(AUTO) 4.73 MIL/uL (4.50-5.90); RED CELL DISTRIBUTION WIDTH 21.7 % (11.5-14.5)
[2021-07-24 01:24] LABS: CALCIUM, TOTAL 8.5 mg/dL (8.8-10.5); CREATININE 1.48 mg/dL (0.60-1.30); POTASSIUM 3.9 mmol/L (3.5-5.1)
[2021-07-24 01:35] LABS: INR 1.1 (0.9-1.1); PROTHROMBIN TIME 11.7 SEC (9.4-11.6)
[2021-07-24 01:43] LABS: COVID AG,FIA SOURCE NASOPHARYNGEAL
[2021-07-24] MEDS ORDERED: FUROSEMIDE 20 MG/2 ML VIAL IVP ONE (01:45)
[2021-07-24 01:49] LABS: BILIRUBIN,TOTAL 0.8 mg/dL (0.1-1.0); MAGNESIUM 1.8 mg/dL (1.80-2.40); PHOSPHORUS 4.5 mg/dL (2.5-4.9); TOTAL PROTEIN, SERUM 7.5 g/dL (6.4-8.2)
[2021-07-24 02:03] LABS: INFLUENZA TYPE A NEGATIVE FOR TYPE A (NEGATIVE); INFLUENZA TYPE B NEGATIVE FOR TYPE B (NEGATIVE)
[2021-07-24] MEDS ORDERED: IOHEXOL 350 MG/ML 100 ML VIAL ONE (02:44)
[2021-07-24] MEDS ORDERED: SODIUM CHLORIDE 0.9% 100 ML ONE (02:44)
[2021-07-24] MEDS ORDERED: IOHEXOL 350 MG/ML 150 ML VIAL ONE (03:02)
[2021-07-24] MEDS ORDERED: ACETAMINOPHEN 325 MG TABLET PO PRN ×2 (05:00→09:30)
[2021-07-24] MEDS ORDERED: ONDANSETRON HCL 4 MG/2 ML VIAL IVP PRN ×2 (05:00→09:30)
[2021-07-24] MEDS ORDERED: 0.9% SODIUM CHLORIDE 10 ML SYRINGE IVP PRN (05:00)
[2021-07-24] MEDS ORDERED: MORPHINE SULFATE 2 MG/ML SYRINGE IVP PRN (09:30)
[2021-07-24] MEDS ORDERED: MAGNESIUM HYDROXIDE SUSPENSION 30 ML UDCUP PO PRN (09:30)
[2021-07-24] MEDS ORDERED: LISINOPRIL 5 MG TABLET PO SCH (09:30)
[2021-07-24] MEDS ORDERED: ZOLPIDEM TARTRATE 5 MG TABLET PO PRN (09:30)
[2021-07-24] MEDS ORDERED: BISACODYL 10 MG RECTAL RECTAL SUPPOSITORY PR PRN (09:30)
[2021-07-24] MEDS ORDERED: APIXABAN 5 MG TABLET PO SCH (09:30)
[2021-07-24] MEDS: METOPROLOL SUCCINATE 50 MG ER TABLET PO SCH ×2 (10:46→19:57)
[2021-07-24] MEDS ORDERED: -PHARMACY VACCINE NOTE- MISC ONE (11:30)
[2021-07-24] MEDS: ASPIRIN 81 MG DR TABLET PO SCH (11:39)
[2021-07-24 15:16] VITALS: BP 154/87
[2021-07-24 19:22] VITALS: BP 144/97
[2021-07-24] MEDS: DOCUSATE SODIUM 100 MG CAPSULE PO SCH (19:58)
[2021-07-24] MEDS: FUROSEMIDE 20 MG/2 ML VIAL IVP SCH (19:59)
[2021-07-24] MEDS: HYDROCODONE/ACETAMINOPHEN 5-325 MG TABLET PO PRN (20:13)
[2021-07-24 23:26] VITALS: BP 138/94
[2021-07-25] MEDS: HYDROCODONE/ACETAMINOPHEN 5-325 MG TABLET PO PRN ×2 (00:26→04:41)
[2021-07-25 02:55] LABS: AMPHET/METH SCREEN,URINE NEGATIVE (NEGATIVE); BARBITURATE SCREEN, URINE NEGATIVE (NEGATIVE); BENZODIAZEPINES SCREEN,URINE NEGATIVE (NEGATIVE); CANNABINOID SCREEN,URINE NEGATIVE (NEGATIVE); COCAINE SCREEN,URINE NEGATIVE (NEGATIVE); METHADONE SCREEN, URINE NEGATIVE (NEGATIVE); OPIATE SCREEN,URINE NEGATIVE (NEGATIVE)
[2021-07-25 02:58] LABS: PHENCYCLIDINE SCREEN,URINE NEGATIVE (NEGATIVE)
[2021-07-25 03:47] VITALS: BP 143/93
[2021-07-25 07:00] LABS: BASOPHILS % (AUTO) 0.8 % (0.0-2.0); EOSINOPHILS % (AUTO) 11.3 % (1.0-6.0); HEMATOCRIT 32.8 % (41-53); HEMOGLOBIN 9.7 g/dL (13.5-17.5); LYMPHOCYTES # (AUTO) 0.8 K/uL (1.0-4.8); LYMPHOCYTES % (AUTO) 16.5 % (22.0-44.0); MEAN CORPUSCULAR HEMOGLOBIN 20.7 pg (26.0-34.0); MEAN CORPUSCULAR HGB CONC 29.7 G/dL (31.0-37.0); MEAN CORPUSCULAR VOLUME 70 fL (80-100); MONOCYTES # (AUTO) 0.5 K/uL (0.1-1.0); MONOCYTES % (AUTO) 10.6 % (2.0-9.0); NEUTROPHILS # (AUTO) 3.1 K/uL (1.8-7.7); NEUTROPHILS % (AUTO) 60.8 % (40.0-70.0); PLATELET COUNT (AUTO) 266 K/uL (150-450); RED CELL DISTRIBUTION WIDTH 21.6 % (11.5-14.5)
[2021-07-25 07:16] LABS: ALBUMIN 3.5 g/dL (3.4-5.0); BILIRUBIN,TOTAL 1.2 mg/dL (0.1-1.0); CALCIUM, TOTAL 8.5 mg/dL (8.8-10.5); CREATININE 1.42 mg/dL (0.60-1.30); POTASSIUM 3.7 mmol/L (3.5-5.1); TOTAL PROTEIN, SERUM 7.7 g/dL (6.4-8.2)
[2021-07-25] MEDS ORDERED: PANTOPRAZOLE SODIUM 40 MG DR TABLET PO SCH (09:00)
[2021-07-25] MEDS ORDERED: ALLOPURINOL 100 MG TABLET PO SCH (09:00)
[2021-07-25] MEDS ORDERED: ATORVASTATIN CALCIUM 40 MG TABLET PO SCH (09:00)
[2021-07-25] MEDS ORDERED: ISOSORB DINIT/HYDRALAZINE HCL 20-37.5 MG TABLET PO SCH (09:00)
[2021-07-25 09:10] VITALS: BP 145/91
[2021-07-25] MEDS: ASPIRIN 81 MG DR TABLET PO SCH (10:57)
[2021-07-25] MEDS: DOCUSATE SODIUM 100 MG CAPSULE PO SCH (10:57)
[2021-07-25] MEDS: FUROSEMIDE 20 MG/2 ML VIAL IVP SCH (10:57)
[2021-07-25] MEDS: METOPROLOL SUCCINATE 50 MG ER TABLET PO SCH (10:57)
[2021-07-25 12:06] VITALS: BP 142/76
== END 2021-07-25 15:45 | disposition home or self-care (01) | DRG 291 ==
LOC: EMS 00:01 → 5S 03:46
PROVIDERS: ADMIT Internal Medicine; ATTEND Internal Medicine
DX: I13.0 Hypertensive heart and chronic kidney disease with heart failure and stage 1 through stage 4 chronic kidney disease, or unspecified chronic kidney disease (principal); I50.23 Acute on chronic systolic (congestive) heart failure; J96.01 Acute respiratory failure with hypoxia; K25.4 Chronic or unspecified gastric ulcer with hemorrhage; I48.19 Other persistent atrial fibrillation; Z20.822 Contact with and (suspected) exposure to COVID-19; I42.9 Cardiomyopathy, unspecified; N18.30 Chronic kidney disease, stage 3 unspecified; M10.9 Gout, unspecified; E78.5 Hyperlipidemia, unspecified; D64.9 Anemia, unspecified; E78.00 Pure hypercholesterolemia, unspecified; Z87.891 Personal history of nicotine dependence; Z91.19 Patient's noncompliance with other medical treatment and regimen
CPT/HCPCS: 71045; 71275; 80053; 80307; 82550; 83735; 83880; 84100; 84484; 85025; 85610; 85730; 87804; 93005; 99291; J1940; J2270; J7050; Q9967; 36415-L1; 36415-TC

== ENCOUNTER 2021-08-12 04:13 | Emergency (ER) | payer MEDICARE ==
[~2021-08-12] VITALS: Ht 188 cm; Wt 100.0 kg
[~2021-08-12 04:13] MED LIST changes: -ALLO-97 PO; -APIX5TAB PO; +BENZ-70 PO; -DOCU-270 PO; -LISI-892 PO; -METO-391 PO
[2021-08-12 04:18] VITALS: BP 172/103
== END 2021-08-12 04:50 | disposition left against medical advice (07) ==
LOC: EMS 04:15
DX: R00.2 Palpitations (principal); Z53.21 Procedure and treatment not carried out due to patient leaving prior to being seen by health care provider

== ENCOUNTER 2022-07-04 03:59 | Emergency (ER) | payer MEDICARE ==
[~2022-07-04] VITALS: Ht 188 cm; Wt 109.1 kg
[~2022-07-04 03:59] MED LIST changes: +BENZ-227 PO; -BENZ-70 PO
[2022-07-04 04:00] VITALS: BP 178/128
== END 2022-07-04 04:54 | disposition left against medical advice (07) ==
LOC: EMS 04:00
DX: R06.02 Shortness of breath (principal); R05.9 Cough, unspecified; Z53.21 Procedure and treatment not carried out due to patient leaving prior to being seen by health care provider
CPT/HCPCS: 99281